=== PATIENT | female | born 2000 | race Two or more races ===

== ENCOUNTER 2024-12-10 11:17 | Outpatient (AMB) | payer OTHER, SELFPAY ==
--- NOTE | 2024-12-10 11:24 | AM.OFFWIN_ITS ---
Intake Vital Signs 12/10/24 11:29 Height 5 ft 4 in Weight 186 lb 7 oz BMI 32.0 BP 124/80 Blood Pressure Location Rt brachial Position Sitting Pulse 103 H Pulse Source Pulse Oximeter Pulse Oximetry (%) 98 Oxygen Delivery Method Room Air Intake Visit Reasons: EP-hemorrhoid problem Intake Note: Patient here for hemmorhoids that have been present on and off for a while now but since she has reached the end of her it has flared up again. Patient Tobacco Use Status: Never used Tobacco Allergies No Known Allergies Allergy (Verified 12/10/24 11:31) Do you need a note to return to daycare/school/sports/work: No HPI HPI Comments History of Present Illness Details History of Present Illness - The patient is a 24-year-old female pr esenting with hemorrhoids. - The hemorrhoids became noticeable and troubling during her current , now at 33 weeks. - Despite constipation starting after co mmencing an iron supplement, the patient experienced hemorrhoids before the supplementation. - She has tried treatments such as witch luis alberto and cortisone cream but reports continued discomfort and the presence of multiple hemorrhoids externally. - Efforts to manually reduce the hemorrh oids were not successful. - Sitz baths have been used to help arie ge symptoms. - If symptoms persist post-delivery, the patient will discuss referral to a surgeon with her primary care physician. Physical Exam General: Cooperative, healthy appearing, comfortable, no acute distress and well developed Orientation: Patient oriented x3 Limitations: No limitations Head: Normal to inspection Ears: Hearing grossly normal bilaterally Nose: Normal External nose present Face and sinus: Normal facial exam Eyes: Appearance normal, both eyes and all related structures Neck: Normal visual inspection and Yes full ROM Respiratory: Normal respiratory effort and able to speak in complete sentences. Skin: No rashes or lesions noted Neuro: Patient oriented x3 Extremities: Normal to inspection PFSH Social History Patient Tobacco Use Status: Never used Tobacco Review of Systems Const All systems reviewed & are unremarkable except as noted in HPI and below Physical Exam Vital Signs: Last Vital Signs Pulse 103 H 12/10/24 11:29 BP 124/80 12/10/24 11:29 Pulse Ox 98 12/10/24 11:29 Oxygen Delivery Method Room Air 12/10/24 11:29 BMI result Body Mass Index 32.0 Assessment & Plan Assessment & Plan (1) Hemorrhoids during : Code(s): O22.40 - Hemorrhoids in , unspecified trimester Qualifiers: Trimester: third trimester Qualified Code(s): O22.43 - Hemorrhoids in , third trimester Plan: The management plan for the patient's external hemorrhoids includes conservative treatment measures such as the application of cold Tucks pads and sitz baths. Phenylephrine ointment is recommended to help relieve swelling, with the advice to verify the safety of these treatments during . Consideration for surgical intervention was discussed if the hemorrhoidal symptoms remain problematic after delivery, with the possibility of seeking a referral for surgery during the scheduled February appointment with PCP if significant improvement is not achieved. Patient was informed and verbally consented to the use of an ambient scribe for clinic note documentation during this visit. Coding Level of Care Code Est Pt Level 3 (33975) Diagnoses Hemorrhoids during in third trimester O22.43 Trimester: third trimester
[2024-12-10 11:29] VITALS: BP 124/80; PULSE 103; O2SAT 98; BMI 32.0
--- OUTSIDE RECORDS SUMMARY | 2024-12-10 13:29 | XMS_ITS | Data Portability ---
Author Organization [facility] [address] Address [address] [place] [address] Assessment No assessment recorded. Plan of Treatment Reminders Order Date Submit Date Provider Last Modified By Organization Details Last Modified Time Details Appointments None record ed. Lab None record ed. Referral None record ed. Procedures None record ed. Surgeries None record ed. Imaging None record ed. Medication Orders None record ed. Patient TargetsNo targets recorded. Patient InstructionsNo instructions recorded. Reason for Referral None Reported. Medical Equipment None Reported. Medications Name Sig Start Date Stop Date Status Note LastModified by Organization Details LastModified Time doxycycline hyclate 100 mg capsule active Not Available Not Available N ot Available cetirizine 10 mg tablet TAKE 1 TABLET BY MOUTH EVERY DAY active Not Available Not Available No t Available fluticasone propionate 50 mcg/actuation nasal spray,suspens ion SHAKE LIQUID AND USE 2 SPRAYS IN EACH NOSTRIL DAILY FOR 5 DAYS active Not Available Not Available No t Available doxycycline hyclate 100 mg tablet TAKE 1 TABLET BY MOUTH TWICE DAILY FOR 7 DAYS active Not Available Not Available No t Available Vitals None Recorded Social History None recorded. Functional Status None recorded. Mental Status None recorded. Family History Nothing Reported. Medical History No medical history recorded. Gynecological HistoryNo gynecological history recorded. Obstetrics History GPAL:G 0 P 0 0 0 0 Past Encounters Encounter ID Performer Location Encounter Start Date Encounter Closed Date Diagnosis/Indication Diagnosis SNOMED-CT Code Diagnosis ICD10 Code Diagnosis Note [id number] [address] [address] [place] [address] 08/03/2020 17:05:46 08/03/2020 19:22:12 [id number] [address] [address] [place] [address] 10/30/2020:38:22 10/30/2020 13:14:57 [id number] [address] [place] [address] 06/18/2021 18:22:04 06/18/2021 20:21:37 [id number] [address] [facility] [place] [address] 08/08/2020 09:37:08 08/09/2020 07:51:15 [id number] [address] [facility] [place] [address] 03/19/2020 13:12:16 03/19/2020 14:58:35 [id number] [address] [facility] [place] [address] 01/21/2021 13:31:21 01/21/2021 13:54:59 [id number] [address] [place] [address] 09/07/2021 16:59:32 09/07/2021 17:45:11 [id number] Aant Rod, [employer] [address] [address] 05/28/2024 16:17:49 05/28/2024 17:08:40 Administrative reason for encounter [id number] Z02.9 not sure why this chart was created . no data found Health Concerns Section Related Observation LastModified by Organization Detai ls LastModified Time None Recorded Concern Status LastModified by Organization Details LastModified Time None Recorded Advance Directives Directive None Recorded Payers Encounter Date Sequence Insurance Name Policy Number Policy Sahu Covered Member ID Sahu Member ID Guarantor Name 10/30/2020 1 [employer] - DOS PRIOR TO 2024 - [employer] () Ashley Acevedo [id number] Ashley Acevedo 06/18/2021 1 [employer] - DOS PRIOR TO 2024 - [employer] () Ashley Acevedo [id number] Ashley Acevedo 09/07/2021 1 [employer] - DOS PRIOR TO 2024 - [employer] () Ashley Acevedo [id number] Ashley Acevedo 05/28/2024 1 [employer] - DOS PRIOR TO 2024 - [employer] () Ashley Acevedo [id number] Ashley Acevedo OBGyn Episode No OBEpisode recorded.
--- OUTSIDE RECORDS SUMMARY | 2024-12-10 13:30 | XMS_ITS | Clinical Summary ---
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 Role Phone Unavailable Primary Care Provider Unavailabl e Social History Tobacco Use Types Packs/Day Years Used Date Smoking Tobacco: Never Assessed Comments Unknown Sex and Gender Information Value Date Recorded Sex Assigned at Not on file Legal Sex Female 5:43 PM EST Gender Identity Not on file Sexual Orientation Not on file Plan of Treatment Health Maintenance Due Date Last Done Comments HPV Vaccines (1 - 3-dose series) 2013 DTaP,Tdap,and Td Vaccines (1 - Tdap) 2017 Hepatitis B Vaccines (1 of 3 - 19+ 3-dose series) 2017 Cervical Cancer Screening: P ap Smear 2019 COVID-19 Vaccine ( - 2023-2 5 season) 2024 Influenza Vaccine (#1) 2024 HIB Vaccines Aged Out No longer eligi ble based on patient's age to complete this topic Hepatitis A Vaccines Aged Out No long er eligible based on patient's age to complete this topic IPV Vaccines Aged Out No longer eligi ble based on patient's age to complete this topic MMR Vaccines Aged Out No longer eligi ble based on patient's age to complete this topic Meningococcal ACWY Vaccine Aged Out N o longer eligible based on patient's age to complete this topic Meningococcal B Vacine Aged Out No lo nger eligible based on patient's age to complete this topic Pneumococcal Vaccine: Pediat rics (0 to 5 Years) and At-Risk Patients (6 to 64 Years) Aged Out No longer eligible b ased on patient's age to complete this topic RSV Immunization Patients Un anthony 20 months Aged Out No longer eligible b ased on patient's age to complete this topic Varicella Vaccines Aged Out No longer eligible based on patient's age to complete this topic
--- OUTSIDE RECORDS SUMMARY | 2024-12-10 13:30 | XMS_ITS | Data Portability ---
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 Plan of Treatment Reminders Order Date Submit Date Provider Last Modified By Organization Details Last Modified Time Details Appointments None recor ded. Lab CBC w/ auto diff 2017 018 [facility], [address], [address], [place], [address], 8 21:43:14 TSH, serum or plasm a 2017 018 [facility], [address], [address], [place], [address], 8 23:48:17 CMP, serum or plasm a 2017 018 [facility], [address], [address], [place], [address], 8 23:31:38 H pylor i igm+i gg+ig a Ab, serum 2017 018 [facility], [address], [address], [place], [address], 8 22:52:50 tissu e trans gluta wai e iga Ab, serum 2017 018 [facility], [address], [address], [place], [address], 8 12:45:12 tissu e trans gluta wai e igg Ab, serum 2017 018 [facility], [address], [address], [place], [place], [address], 8 16:26:16 CT + NG DNA, PCR, urine 2017 018 [email or web address], [address], [address], [place], [address], 8 10:29:03 TSH, serum or plasm a 2017 018 [facility], [address], [place], [place], [address], 8 21:22:26 RPR (rapi d plasm a reagi n), titer , serum 2017 018 [facility], [address], [address], [place], [address], 8 09:43:43 HIV 1+2 AB + HIV 1 p24 Ag, quali tativ e immun oassa y, serum 2017 018 [facility], [address], [place], [address], 8 08:58:12 Referral gastr leah winslow ist refer ral 2017 018 [facility], [address] [facility], [place], [address], 9 11:36:36 physi kelsey badillot refer ral - Low back pain with radia tion. Inter mitte nt. 2017 018 [email or web address] Not available 8 08:07:22 Procedures None recor ded. Surgeries None recor ded. Imaging None recor ded. Medication Orders Analp sylvester-H C 2.5 %-1 % recta l cream 2017 018 [email or web address] Not available 8 14:11:39 ibupr ofen 600 mg table t 2017 018 INTERFACE Not available 8 14:06:49 napro xen 500 mg table t 2016 017 [email or web address] Not available 8 13:43:04 cyclo benza neto 5 mg table t 2016 017 [email or web address] Not available 8 13:42:43 Patient TargetsNo targets recorded. Patient Instructions Encounter Date Encounter Id Patient Instructions Last Modified By Organization Details Last Modified Time 07/30/2017 [id number] low back pain: exercises Not available 07/30/2017 14:19:21 back strain: care instructions Not available 07/30/2017 14:19:21 I have reviewed the note and agree with the assessment and plan of care. [email or web address] Not available 07/30/2017 15:08:31 12/18/2017 [id number] back care and preventing injuries: care instructions [email or web address] Not available 12/18/2017 13:19:33 getting back to normal after low back pain: care instructions [email or web address] Not available 12/18/2017 13:19:33 learning about relief for back pain [email or web address] Not available 12/18/2017 13:19:33 01/20/2018 [id number] back care and preventing injuries: care instructions [email or web address] Not available 01/20/2018 14:06:43 getting back to normal after low back pain: care instructions [email or web address] Not available 01/20/2018 14:06:43 learning about relief for back pain [email or web address] Not available 01/20/2018 14:06:43 Essential Tremor: Care Instructions [email or web address] Not available 01/20/2018 14:06:43 05/23/2018 [id number] call/ return for any concerns. [email or web address] Not available 05/23/2018 14:52:09 I have reviewed the note and agree with the assessment and plan of care. lgladingdilorenz Not available 05/23/2018 15:23:37 09/04/2018 [id number] call or return for worsening or concerns. [email or web address] Not available 09/04/2018 13:49:48 Reason for Referral Low back pain with radiation . Intermittent. Referring Physician: Daina Price, [facility], Encounter Date: 01/20/2018 Claim Approver Referral for Abnormal weight loss Referring Physician: Doris Layton, [facility], Encounter Date: 09/04/2018 Results Created Date Observation Date Name Description Value Unit Range Abnormal Flag Note LastModifiedBy Organization Detail LastModifiedTime 01/21/2001/20/2018 TSH, serum or plasm a TSH 0.69 mIU/m L (0.40- 4.00) Not Available [facility] (Centralized Electronic Ordering - All Locations) Patient Can Go To The Location Of Their Choice, [id number] 01/20/2018 21:22:26 01/21/2001/21/2018 HIV 1+2 AB + HIV 1 p24 Ag, quali tativ e immun oassa y, serum result 4TH gen HIV Ab-Ag NEGAT BRANDIE NEGAT BRANDIE FOR ANTIB ODIES TO HIV 1 AND HIV 2 AND P24 ANTIG EN. Refer ence range : Negat brandie ADDIT IONAL NOTE: WRITT EN PATIE NT AUTHO RIZAT ION IS REQUI RED FOR EACH SEPAR ATE RELEA SE OF THIS TEST RESUL T. Not Available [facility] (Centralized Electronic Ordering - All Locations) Patient Can Go To The Location Of Their Choice, [id number] 01/21/2018 08:58:12 01/21/2001/21/2018 RPR (rapi d plasm a reagi n), titer , serum syphilis screen by jakob NEGAT BRANDIE Refer ence range : Negat brandie Resul t repor karissa to [place] DPH. This test was perfo rmed on the Abbot t Archi tect immun oassa y syste m. Not Available [facility] (Centralized Electronic Ordering - All Locations) Patient Can Go To The Location Of Their Choice, [id number] 01/21/2018 09:43:43 01/21/2001/21/2018 RPR (rapi d plasm a reagi n), titer , serum RPR titer result NOT INDICA KARISSA Not Available [facility] (Centralized Electronic Ordering - All Locations) Patient Can Go To The Location Of Their Choice, [id number] 01/21/2018 09:43:43 01/21/20 18 01/21/2018 RPR (rapi d plasm a reagi n), titer , serum tppa result NOT INDICA KARISSA Not Available [facility] (Centralized Electronic Ordering - All Locations) Patient Can Go To The Location Of Their Choice, [id number] 01/21/2018 09:43:43 01/21/2001/21/2018 RPR (rapi d plasm a reagi n), titer , serum syphilis interpretati on Indic ative of the absen ce of infec tion with Trepo nemal palli dum. Test may be negat brandie in cases of incub ating or early prima ry syphi lis. Consi anthony repea t testi ng in sever al weeks if clini kelsey suspi cion is high. Not Available [facility] (Centralized Electronic Ordering - All Locations) Patient Can Go To The Location Of Their Choice, [id number] 01/21/2018 09:43:43 09/04/2009/04/2018 CBC w/ auto diff WBC 8.4 K/mm3 (4.0-1 1.0) Not Available [facility] (Centralized Electronic Ordering - All Locations) Patient Can Go To The Location Of Their Choice, [id number] 09/04/2018 21:43:14 09/04/2009/04/2018 CBC w/ auto diff RBC 4.62 M/mm3 (4.20- 5.40) Not Available [facility] (Centralized Electronic Ordering - All Locations) Patient Can Go To The Location Of Their Choice, [id number] 09/04/2018 21:43:14 09/04/2009/04/2018 CBC w/ auto diff HGB 13.1 gm/dL (11.7- 15.5) Not Available [facility] (Centralized Electronic Ordering - All Locations) Patient Can Go To The Location Of Their Choice, [id number] 09/04/2018 21:43:14 09/04/20 18 09/04/2018 CBC w/ auto diff HCT 39.4 % (35.7- 45.8) Not Available [facility] (Centralized Electronic Ordering - All Locations) Patient Can Go To The Location Of Their Choice, 09/04/2018 21:43:14 09/04/20 18 09/04/2018 CBC w/ auto diff MCV 85.3 fL (80.0- 100.0) Not Available [facility] (Centralized Electronic Ordering - All Locations) Patient Can Go To The Location Of Their Choice, 09/04/2018 21:43:14 09/04/2009/04/2018 CBC w/ auto diff MCH 28.4 pg (27.0- 34.0) Not Available [facility] (Centralized Electronic Ordering - All Locations) Patient Can Go To The Location Of Their Choice, 09/04/2018 21:43:14 09/04/20 18 09/04/2018 CBC w/ auto diff MCHC 33.2 g/dL (33.0- 37.0) Not Available [facility] (Centralized Electronic Ordering - All Locations) Patient Can Go To The Location Of Their Choice, 09/04/2018 21:43:14 09/04/2009/04/2018 CBC w/ auto diff plt 255 K/mm3 (150-4 60) Not Available [facility] (Centralized Electronic Ordering - All Locations) Patient Can Go To The Location Of Their Choice, 09/04/2018 21:43:14 09/04/2009/04/2018 CBC w/ auto diff RDW-SD 42.4 fL (<47.0 ) Not Available [facility] (Centralized Electronic Ordering - All Locations) Patient Can Go To The Location Of Their Choice, 09/04/2018 21:43:14 09/04/2009/04/2018 CBC w/ auto diff MPV 10.6 fL (9.4-1 2.4) Not Available [facility] (Centralized Electronic Ordering - All Locations) Patient Can Go To The Location Of Their Choice, 09/04/2018 21:43:14 09/04/2009/04/2018 CBC w/ auto diff automated NRBC 0.0 #/100 _WBC' s Not Available [facility] (Centralized Electronic Ordering - All Locations) Patient Can Go To The Location Of Their Choice, 09/04/2018 21:43:14 09/04/2009/04/2018 CBC w/ auto diff abs. NRBC 0.0 K/mm3 Not Available [facility] (Centralized Electronic Ordering - All Locations) Patient Can Go To The Location Of Their Choice, 09/04/2018 21:43:14 09/04/2009/04/2018 CBC w/ auto diff neut # 5.8 K/mm3 (1.3-7 .0) Not Available [facility] (Centralized Electronic Ordering - All Locations) Patient Can Go To The Location Of Their Choice, 09/04/2018 21:43:14 09/04/2009/04/2018 CBC w/ auto diff lymph # 1.9 K/mm3 (0.8-3 .1) Not Available [facility] (Centralized Electronic Ordering - All Locations) Patient Can Go To The Location Of Their Choice, 09/04/2018 21:43:14 09/04/2009/04/2018 CBC w/ auto diff mono# 0.5 K/mm3 (0.4-0 .9) Not Available [facility] (Centralized Electronic Ordering - All Locations) Patient Can Go To The Location Of Their Choice, 09/04/2018 21:43:14 09/04/2009/04/2018 CBC w/ auto diff eo # 0.1 K/mm3 (0.0-0 .4) Not Available [facility] (Centralized Electronic Ordering - All Locations) Patient Can Go To The Location Of Their Choice, 09/04/2018 21:43:14 09/04/2009/04/2018 CBC w/ auto diff baso # 0.0 K/mm3 (0.0-0 .1) Not Available [facility] (Centralized Electronic Ordering - All Locations) Patient Can Go To The Location Of Their Choice, 09/04/2018 21:43:14 09/04/2009/04/2018 CBC w/ auto diff abs. imm gran 0.0 K/mm3 Not Available [facility] (Centralized Electronic Ordering - All Locations) Patient Can Go To The Location Of Their Choice, 09/04/2018 21:43:14 09/04/2009/04/2018 CBC w/ auto diff neut 69.7 % (44-76 ) Not Available [facility] (Centralized Electronic Ordering - All Locations) Patient Can Go To The Location Of Their Choice, 09/04/2018 21:43:14 09/04/20 18 09/04/2018 CBC w/ auto diff lymph 22.9 % (15-43 ) Not Available [facility] (Centralized Electronic Ordering - All Locations) Patient Can Go To The Location Of Their Choice, [id number] 09/04/2018 21:43:14 09/04/20 18 09/04/2018 CBC w/ auto diff monocyte 5.4 % (4.5-1 0.5) Not Available [facility] (Centralized Electronic Ordering - All Locations) Patient Can Go To The Location Of Their Choice, [id number] 09/04/2018 21:43:14 09/04/20 18 09/04/2018 CBC w/ auto diff eo 1.1 % (0-6) Not Available [facility] (Centralized Electronic Ordering - All Locations) Patient Can Go To The Location Of Their Choice, [id number] 09/04/2018 21:43:14 09/04/20 18 09/04/2018 CBC w/ auto diff baso 0.4 % (0-2) Not Available [facility] (Centralized Electronic Ordering - All Locations) Patient Can Go To The Location Of Their Choice, [facility] 09/04/2018 21:43:14 09/04/20 18 09/04/2018 CBC w/ auto diff imm gran 0.5 % (0.0-0 .6) Not Available [facility] (Centralized Electronic Ordering - All Locations) Patient Can Go To The Location Of Their Choice, [id number] 09/04/2018 21:43:14 09/04/20 18 09/04/2018 H pylor i igm+i gg+ig a Ab, serum H. pylori IgG (neg) normal NEGAT BRANDIE NOTE: THIS TEST SHOUL D ONLY BE PERFO RMED ON PATIE NTS WITH SYMPT OMS SUGGE STIVE OF GASTR OINTE SWETA L DISEA SE. PERFO RMANC E SAVANAH CTERI STICS CORRE LATE WITH PRETE ST PROBA BILIT Y, AND PREVA LENCE INCRE ASES WITH AGE. THIS TEST HAS NOT BEEN SPECI FICAL LY EVALU ATED IN PEDIA TRIC POPUL ATION S, A LOWER PREVA LENCE GROUP . PLEAS E INTER PRET RESUL TS TOGET HER WITH CLINI KELSEY AND OTHER DIAGN OSTIC FINDI NGS, AND NOTE THAT A POSIT BRANDIE RESUL T DOES NOT DISTI NGUIS H ACTIV E INFEC TION FROM COLON IZATI ON BY BETY TOMAS. Not Available [facility] (Centralized Electronic Ordering - All Locations) Patient Can Go To The Location Of Their Choice, 09/04/2018 22:52:50 09/04/2009/04/2018 CMP, serum or plasm a glucose 92 mg/dL (70-99 ) Not Available [facility] (Centralized Electronic Ordering - All Locations) Patient Can Go To The Location Of Their Choice, 09/04/2018 23:31:38 09/04/2009/04/2018 CMP, serum or plasm a BUN 13 mg/dL (6-20) Not Available [facility] (Centralized Electronic Ordering - All Locations) Patient Can Go To The Location Of Their Choice, 09/04/2018 23:31:38 09/04/2009/04/2018 CMP, serum or plasm a creatinine 0.6 mg/dL (0.5-1 .0) Not Available [facility] (Centralized Electronic Ordering - All Locations) Patient Can Go To The Location Of Their Choice, 09/04/2018 23:31:38 09/04/2009/04/2018 CMP, serum or plasm a sodium 141 mmol/ L (133-1 45) Not Available [facility] (Centralized Electronic Ordering - All Locations) Patient Can Go To The Location Of Their Choice, 09/04/2018 23:31:38 09/04/2009/04/2018 CMP, serum or plasm a potassium 4.0 mmol/ L (3.6-5 .2) Not Available [facility] (Centralized Electronic Ordering - All Locations) Patient Can Go To The Location Of Their Choice, 09/04/2018 23:31:38 09/04/2009/04/2018 CMP, serum or plasm a chloride 104 mmol/ L (98-10 7) Not Available [facility] (Centralized Electronic Ordering - All Locations) Patient Can Go To The Location Of Their Choice, 09/04/2018 23:31:38 09/04/2009/04/2018 CMP, serum or plasm a bicarbonate 25 mmol/ L (22-29 ) Not Available [facility] (Centralized Electronic Ordering - All Locations) Patient Can Go To The Location Of Their Choice, 09/04/2018 23:31:38 09/04/2009/04/2018 CMP, serum or plasm a anion gap 12 (4-17) Not Available [facility] (Centralized Electronic Ordering - All Locations) Patient Can Go To The Location Of Their Choice, 09/04/2018 23:31:38 09/04/2009/04/2018 CMP, serum or plasm a albumin 4.8 gm/dL (3.4-4 .8) Not Available [facility] (Centralized Electronic Ordering - All Locations) Patient Can Go To The Location Of Their Choice, 09/04/2018 23:31:38 09/04/2009/04/2018 CMP, serum or plasm a calcium 9.8 mg/dL (8.6-1 0.5) Not Available [facility] (Centralized Electronic Ordering - All Locations) Patient Can Go To The Location Of Their Choice, 09/04/2018 23:31:38 09/04/2009/04/2018 CMP, serum or plasm a bilirubin,to yoli 1.0 mg/dL (0-1.2 ) Not Available [facility] (Centralized Electronic Ordering - All Locations) Patient Can Go To The Location Of Their Choice, 09/04/2018 23:31:38 09/04/2009/04/2018 CMP, serum or plasm a total protein 7.4 gm/dL (6.2-8 .2) Not Available [facility] (Centralized Electronic Ordering - All Locations) Patient Can Go To The Location Of Their Choice, 09/04/2018 23:31:38 09/04/2009/04/2018 CMP, serum or plasm a Ag ratio 1.8 Not Available [facility] (Centralized Electronic Ordering - All Locations) Patient Can Go To The Location Of Their Choice, 09/04/2018 23:31:38 09/04/2009/04/2018 CMP, serum or plasm a AST 15 U/L (0-32) Not Available [facility] (Centralized Electronic Ordering - All Locations) Patient Can Go To The Location Of Their Choice, 09/04/2018 23:31:38 09/04/20 18 09/04/2018 CMP, serum or plasm a alk phos 69 U/L (35-10 4) Not Available [facility] (Centralized Electronic Ordering - All Locations) Patient Can Go To The Location Of Their Choice, 09/04/2018 23:31:38 09/04/20 18 09/04/2018 CMP, serum or plasm a ALT 14 U/L (0-33) Not Available [facility] (Centralized Electronic Ordering - All Locations) Patient Can Go To The Location Of Their Choice, 09/04/2018 23:31:38 09/04/20 18 09/04/2018 CMP, serum or plasm a est GFR non 131 mL/mi n/1.7 3_M2 Creat inine based estim ated glome rular filtr ation rate (eGFR ) is calcu lated using the Chron ic Kidne y Disea se Epide miolo gy Colla borat ion (CKD- EPI). The CKD-E PI creat inine equat ion has not been valid ated in child alexis (<18 years ), pregn ant women or in some racia l or ethni c subgr oups other than Cauca sians and Afric an Ameri cans. Not Available [facility] (Centralized Electronic Ordering - All Locations) Patient Can Go To The Location Of Their Choice, 09/04/2018 23:31:38 09/04/2009/04/2018 CMP, serum or plasm a est GFR 152 mL/mi n/1.7 3_M2 Creat inine based estim ated glome rular filtr ation rate (eGFR ) is calcu lated using the Chron ic Kidne y Disea se Epide miolo gy Colla borat ion (CKD- EPI). The CKD-E PI creat inine equat ion has not been valid ated in child alexis (<18 years ), pregn ant women or in some racia l or ethni c subgr oups other than Cauca sians and Afric an Ameri cans. Not Available [facility] (Centralized Electronic Ordering - All Locations) Patient Can Go To The Location Of Their Choice, 09/04/2018 23:31:38 09/04/2009/04/2018 TSH, serum or plasm a TSH 1.48 mIU/m L (0.40- 4.00) Not Available [facility] (Centralized Electronic Ordering - All Locations) Patient Can Go To The Location Of Their Choice, 09/04/2018 23:48:17 09/04/20 18 09/08/2018 tissu e trans gluta wai e igg Ab, serum tissue tranglutamin ase IgG <1.2 Refer ence range : <6.0 (Nega tive) Unit: U/mL Test Perfo rmed by: [facility], [address], [place] [address] Labor atory Direc tor: Mike madsen III, M.D. Not Available [facility] (Centralized Electronic Ordering - All Locations) Patient Can Go To The Location Of Their Choice, [id number] 09/08/2018 16:26:16 09/04/20 18 09/15/2018 tissu e trans gluta wai e iga Ab, serum ttg result 0.29 U/mL (<15.0 1) Refer ence Range : less than or equal to 15 U/mL (nega tive) Effec tive Janua ry 2016 the refer ence range for this assay has gtz ed from less than 4 U/mL to less than or equal to 15 U/mL. Not Available [facility] (Centralized Electronic Ordering - All Locations) Patient Can Go To The Location Of Their Choice, [id number] 09/15/2018 12:45:12 06/19/20 18 06/19/2018 XR, ankle No observ ation record ed. [email or web address] [facility] [address] [place] [address], [place], [address], 06/20/2018 09:14:15 Result Notes None recorded. Problems Name Problem SNOMED Code Status Onset Date Resolution Date Notes Provider Name and Address Organization Details Recorded Time No current problems or disabili ty 168746127 Active VICKIE Belcher MA [facility] 7 09:03:46 Abdomina l pain 56896067 Completed 201104/06/2014 IMPRESSI ON: NON-ACUT E ABDOMEN, IN-HOUSE UA CLEAR, SUSPECT VIRAL ETIOLOGY , FOR NOW WITH MONITOR AND WILL RTC/ER IF WORSENIN G ABDOMINA L PAIN, FEVER OR VOMITING .; RECORDED 06/18/20 12 10:51AM BY QUENTIN MOREIRA MA, ANNOTATI ON/ADDEN BHAVIN Layton [facility] [address] [facility] [address], [place], [address], [facility] 6 15:24:48 Radiolog y result abnormal [id number] Completed 201104/06/2014 RECORDED 06/18/20 12 10:50AM BY QUENTIN MOREIRA MA, ANNOTATI ON/ADDEN BHAVIN Layton, [facility] [address] [facility] [address], [place], [address], [facility] 6 15:24:48 Acute lymphade nitis [id number] Completed 201104/06/2014 RECORDED 06/18/20 12 10:50AM BY QUENTIN MOREIRA MA, ANNOTATI ON/ADDEN BHAVIN Layton, [facility] [address] [address], [place], [address], [facility] 6 15:24:48 Acute pharyngi tis 214539134 Completed 201104/06/2014 IMPRESSI ON: IN HOUSE STREP, SEND OUT PENDING. SUSPECT VIRAL ETIOLOGY . ENCOURAG ED REST, HYDRATIO N, TYLENOL/ MOTRIN PRN.; RECORDED 06/18/20 12 10:50AM BY QUENTIN MOREIRA MA, ANNOTATI ON/ADDEN DUM Doris Layton, [facility] [address] [address], [place], [address], [facility] 6 15:24:48 Acute upper respirat ory infectio n [id number] Completed 201208/31/2014 IMPRESSI ON: MOM WANTS SOMETHIN G FOR COUGH. VIRAL. 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 RICE, CONSIDER BRACE WHILE PLAYING, NSAID PRN.; RECORDED 07/15/20 12 9:11AM BY QUENTIN MOREIRA MA, CHRIS ON/ADDEN BHAVIN Layton, [facility] [address] [facility] [address], [place], [address], [facility] 6 15:24:48 Patient status finding [id number] Completed 201204/06/2014 RECORDED 07/14/20 13 9:12AM BY ZACHERY CERDA MA, CHRIS ON/ADDEN DUM Doris Layton, [facility] [address] [facility] [address], [place], [address], [facility] 6 15:24:48 Jihan nunes [id number] Completed 201204/06/2014 IMPRESSI ON: THEY WILL CALL HER EYE DR; RECORDED 09/08/20 13 9:39AM BY QUENTIN MOREIRA MA, CHRIS ON/ADDEN BHAVIN Layton, [facility] [address] [facility] [address], [place], [address], [facility] 6 15:24:48 Constipa tion [id number] Completed 201104/06/2014 RECORDED 06/18/20 12 10:50AM BY QUENTIN MOREIRA MA, CHRIS ON/ADDEN DUM Doris Layton, [facility] [address] [facility] [address], [place], [address], [facility] 6 15:24:48 Cough [id number] Completed 200804/06/2014 RECORDED 08/11/20 09 1:33PM BY SYEDA SALAZAR MA, CHRIS ON/ADDEN BHAVIN Layton, [facility] [address] [address], [place], [address], [facility] 6 15:24:48 Dysuria [id number] Completed 200804/06/2014 RECORDED 12/29/19 09 8:28AM BY SYEDA SALAZAR MA, CHRIS ON/ADDEN BHAVIN Layton, [facility] [address] [facility] [address], [place], [address], [facility] 6 15:24:48 Pain in elbow 75978666 Completed 201104/06/2014 IMPRESSI ON: SUSPECT THIS IS SECONDAR Y TO RECENT INJURY. NL EXAM, MOM AND PT REASSURE D. CONTACT ME FOR WORSENIN G.; RECORDED 06/18/20 12 10:50AM BY QUENTIN MOREIRA MA, CHRIS ON/TONI Layton, [facility] [address] [facility] [address], [place], [address], [facility] 6 15:24:48 Disorder of skin and/or subcutan eous tissue 76461320 Completed 201204/06/2014 IMPRESSI ON: SKIN TAG, PT'S MOM TO MAKE APPT WITH DERM FOR REMOVAL D/T COSMETIC REASON; RECORDED 09/08/20 13 9:39AM BY QUENTIN MOREIRA MA, CHRIS ON/TONI Layton, [facility] [address] [facility] [address], [place], [address], [facility] 6 15:24:48 Influenz a vaccine needed [id number] 06 Completed 201004/06/2014 DATE: 06/14/20 11; RECORDED 07/15/20 12 9:11AM BY QUENTIN MOREIRA MA, CHRIS COLLADO/TONI Layton, [facility] [address] [facility] [address], [place], [address], [facility] 6 15:24:48 Injury of head [id number] Completed 201204/06/2014 IMPRESSI ON: WITHOUT LOC, ASSYMPTO MATIC X 4 DAYS, 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 [address], [place], [address], [facility] 6 15:24:48 Knee pain Completed 201204/06/2014 IMPRESSI ON: ONGOING ISSUE FOR PT SINCE MY EVAL 04/02 WHICH INCLUDED NORMAL KNEE XRAYS, CBC, RF, SED RATE. AT THIS POINT BEST EVAL BY ORTHO. WE WILL ARRANGE FOR VISIT WITH SHRINERS .; RECORDED 07/14/20 13 9:12AM BY ZACHERY CERDA MA, CHRIS ON/ADDEN DUM Doris Layton, [facility] [address] [facility] [address], [place], [address], [facility] 6 15:24:48 Nonvenom ous insect bite of multiple sites [id number] Completed 201104/06/2014 RECORDED 06/18/20 12 10:50AM BY QUENTIN MOREIRA MA, CHRIS ON/ADDEN DUM Doris Layton, [facility] [address] [facility] [address], [place], [address], [facility] 6 15:24:48 Active or passive immuniza tion Completed 200904/06/2014 RECORDED 06/08/20 10 4:37PM BY ANTON KIM PA-C, OFFICE VISIT Doris Layton, [facility] [address] [address], [place], [address], [facility] 6 15:24:48 Varicell a vaccinat ion Completed 201004/06/2014 RECORDED 06/14/20 11 3:46PM BY ANTON KIM PA-C, OFFICE VISIT Doris Layton [facility] [address] [address], [facility] [place], [address], [facility] 6 15:24:48 Patient status finding [id number] Completed 201208/31/2014 RECORDED 09/08/20 13 9:40AM BY QUENTIN MOREIRA MA, OFFICE VISIT Doris Layton [facility] [address] [address], [facility] [place], [address], [facility] 6 15:24:48 Immuniza tion refused Completed 201208/31/2014 RECORDED 09/08/20 13 9:45AM BY QUENTIN MOREIRA MA, OFFICE VISIT Doris Layton [facility] [address] [address], [facility] [place], [address], [facility] 6 15:24:48 Pediculo sis capitis [id number] Completed 200804/06/2014 IMPRESSI ON: SPOKE TO MOM, SEES EGGS, KNOWS HOW TO TREAT AND USE COMB; RECORDED 12/29/19 09 9:07AM BY ANTON KIM PA-C, ANNOTATI ON/ADDEN DUM Doris Layton [facility] [address] [address], [place], [address], [facility] 6 15:24:48 Eruption [id number] Completed 200804/06/2014 RECORDED 12/29/19 09 8:28AM BY SYEDA SAALZAR MA, ANNOTATI ON/ADDEN DUM Doris Layton [facility] [address] [facility] [address], [place], [address], [facility] 6 15:24:48 Anorecta l disorder [id number] Completed 201104/06/2014 IMPRESSI ON: ONGOING ISSUE, WITH HEMORRHO IDS ON EXAM AND NO FISSURE APPRECIA KARISSA, ALTHOUGH IT IS POSSIBLE THERE IS A SMALL UNVISUAL IZED ANAL FISSURE CAUSING HER DISCOMFO RT. [facility] ED CONTINUE D USE OF FIBER TO PREVENT CONSTIPA TION/STR AINING. MAY ALSO TRY SMALL AMT OF PROCTOFO AM RECTALLY FOR SX RELIEF. [facility] ED 2 WEEK TRIAL AND F/U WITH PCP IF SXS PERSIST. ; RECORDED 06/18/20 12 10:50AM BY QUENTIN MOREIRA MA, MAHINATI ON/ADDEN DUM Doris Layton, [address] [address], [place], [address], [facility] 6 15:24:48 Well child [id number] Completed 201208/31/2014 IMPRESSI ON: HEALTHY VISIT, RETURN 1 YR OR SOONER PRN.; RECORDED 09/08/20 13 9:40AM BY QUENTIN MOREIRA MA, OFFICE VISIT Doris Layton, [facility] [address] [address], [place], [address], [facility] 6 15:24:48 Well child [id number] Completed 201104/06/2014 RECORDED 06/18/20 12 10:50AM BY QUENTIN MOREIRA MA, MAHINATI ON/ADDEN DUM Doris Layton, [facility] [address] [facility] [address], [place], [address], [facility] 6 15:24:48 Kyphosco liosis and scoliosi s Completed 201204/06/2014 RESOLVED DATE: 09/08/20 13; STORY: X-RAYS REVEALED NO SCOLIOSI S IN 2008; RECORDED 09/08/20 13 3:44PM BY OJ MENDOZA, MAHINATI ON/ADDEN DUM Doris Layton, [facility] [address] [facility] [address], [place], [address], [facility] 6 15:24:48 Sprain of ankle [id number] Completed 201204/06/2014 IMPRESSI ON: IF NOT IMPROVIN G IN 1 WEEK CALL THE OFFICE.; RECORDED 09/08/20 13 9:39AM BY QUENTIN MOREIRA MA, ANNOTATI ON/ADDEN DUM Doris Layton, [facility] [address] [address], [place], [address], [facility] 6 15:24:48 Pain in limb [id number] Completed 201204/06/2014 IMPRESSI ON: SUSPECT GAME KEEPERS THUMB.; RECORDED 09/08/20 13 9:39AM BY QUENTIN MOREIRA MA, CHRIS ON/ADDEN DUM Doris Layton, [facility] [address] [address], [place], [address], [facility] 6 15:24:48 Viral disease [id number] Completed 200804/06/2014 RECORDED 12/29/19 09 8:28AM BY SYEDA SALAZAR MA, MAHINATI ON/ADDEN DUM Doris Layton, [facility] [address] [address], [place], [address], [facility] 6 15:24:47 Abdomina l pain [id number] Completed 201105/03/2014 IMPRESSI ON: NON-ACUT E ABDOMEN, IN-HOUSE UA CLEAR, SUSPECT VIRAL ETIOLOGY , FOR NOW WITH MONITOR AND WILL RTC/ER IF WORSENIN G ABDOMINA L PAIN, FEVER OR VOMITING .; RECORDED 06/18/20 12 10:51AM BY QUENTIN MOREIRA MA, ANNOTCHRISTIANNE ON/ADDEN DUM Doris Layton, [facility] [address] [facility] [address], [place], [address], [facility] 6 15:24:48 Radiolog y result abnormal [id number] Completed 201105/03/2014 RECORDED 06/18/20 12 10:50AM BY QUENTIN MOREIRA MA, CHRIS ON/TONI Layton, [address] [facility] [address], [place], [address], [facility] 6 15:24:48 Acute lymphade nitis 07373715 Completed 201105/03/2014 RECORDED 06/18/20 12 10:50AM BY QUENTIN MOREIRA MA, CHRIS ON/TONI Layton, [address], [place], [address], [facility] 6 15:24:48 Acute pharyngi tis [id number] Completed 201105/03/2014 IMPRESSI ON: IN HOUSE STREP, SEND OUT PENDING. SUSPECT VIRAL ETIOLOGY . ENCOURAG ED REST, HYDRATIO N, TYLENOL/ MOTRIN PRN.; RECORDED 06/18/20 12 10:50AM BY QUENTIN MOREIRA MA, CHRIS ON/TONI Layton, [address] [address], [place], [address], [facility] 6 15:24:48 Joint pain in ankle and foot Completed 201105/03/2014 IMPRESSI ON: MILD INJURY RECENTLY PLAYING SOCCER, NO SWELLING , WB FINE. RICE, CONSIDER BRACE WHILE PLAYING, NSAID PRN.; RECORDED 07/15/20 12 9:11AM BY QUENTIN MOREIRA MA, CHRIS ON/TONI Layton, [address], [place], [address], [facility] 6 15:24:48 Patient status finding [id number] Completed 201205/03/2014 RECORDED 07/14/20 13 9:12AM BY ZACHERY CERDA MA, ANNOTATI ON/ADDEN DUM Doris Layton, [facility] [address], [place], [address], [facility] 6 15:24:48 Jihan nunes [id number] Completed 201205/03/2014 NATOI ON: THEY WILL CALL HER EYE DR; RECORDED 09/08/20 13 9:39AM BY QUENTIN MOREIRA MA, ANNOTATI ON/ADDEN DUM Doris Layton, [facility] [address], [place], [address], [facility] 6 15:24:48 Constipa tion [id number] Completed 201105/03/2014 SAW GI - 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 BUT SHE WON'T TAKE IT; RECORDED 06/18/20 12 10:50AM BY QUENTIN MOREIRA MA, ANNOTCHRISTIANNE ON/ADDEN DUM Doris Layton, [facility] [address], [place], [address], [facility] 6 15:24:48 Cough [id number] Completed 200805/03/2014 RECORDED 08/11/20 09 1:33PM BY SYEDA SALAZAR MA, CHRIS ON/TONI Layton, [facility] [address] [facility] [address], [place], [address], [facility] 6 15:24:48 Dysuria [id number] Completed 200805/03/2014 RECORDED 12/29/19 09 8:28AM BY SYEDA SALAZAR MA, CHRIS ON/ADDROSALIA Layton, [facility] [address], [place], [address], [facility] 6 15:24:48 Pain in elbow [id number] Completed 201105/03/2014 IMPRESSI ON: SUSPECT THIS IS SECONDAR Y TO RECENT INJURY. NL EXAM, MOM AND PT REASSURE D. CONTACT ME FOR WORSENIN G.; RECORDED 06/18/20 12 10:50AM BY QUENTIN MOREIRA MA, CHRIS ON/TONI Layton, [facility] [address] [facility] [address], [place], [address], [facility] 6 15:24:48 Disorder of skin and/or subcutan eous tissue [id number] Completed 201205/03/2014 IMPRESSI ON: SKIN TAG, PT'S MOM TO MAKE APPT WITH DERM FOR REMOVAL D/T COSMETIC REASON; RECORDED 09/08/20 13 9:39AM BY QUENTIN MOREIRA MA, CHRIS ON/TONI Layton, [facility] [address] [facility] [address], [place], [address], [facility] 6 15:24:48 Influenz a vaccine needed [id number] 06 Completed 201005/03/2014 DATE: 06/14/20 11; RECORDED 07/15/20 12 9:11AM BY QUENTIN MOREIRA MA, CHRIS ON/TONI Layton, [facility] [address] [facility] [address], [place], [address], [facility] 6 15:24:48 Injury of head [id number] Completed 201205/03/2014 IMPRESSI ON: WITHOUT LOC, ASSYMPTO MATIC X 4 DAYS, 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 [address], [place], [address], [facility] 6 15:24:48 Knee pain Completed 201205/03/2014 IMPRESSI ON: ONGOING ISSUE FOR PT SINCE MY EVAL 04/02 WHICH INCLUDED NORMAL KNEE XRAYS, CBC, RF, SED RATE. AT THIS POINT BEST EVAL BY ORTHO. WE WILL ARRANGE FOR VISIT WITH FLAKITOINERS .; RECORDED 07/14/20 13 9:12AM BY ZACHERY CERDA MA, ANNOTATI ON/ADDEN DUM Doris Layton, [facility] [address] [facility] [address], [place], [address], [facility] 6 15:24:48 Nonvenom ous insect bite of multiple sites [id number] Completed 201105/03/2014 RECORDED 06/18/20 12 10:50AM BY QUENTIN MOREIRA MA, CHRIS ON/ADDEN DUM Doris Layton, [facility] [address] [facility] [address], [place], [address], [facility] 6 15:24:48 Active or passive immuniza tion Completed 200905/03/2014 RECORDED 06/08/20 10 4:37PM BY ANTON KIM PA-C, OFFICE VISIT Doris Layton, [facility] [address] [facility] [address], [place], [address], [facility] 6 15:24:48 Varicell a vaccinat ion Completed 201005/03/2014 RECORDED 06/14/20 11 3:46PM BY ANTON KIM PA-C, OFFICE VISIT Doris Layton [facility] [address] [facility] [address], [place], [address], [facility] 6 15:24:48 Pediculo sis capitis [id number] Completed 200805/03/2014 IMPRESSI ON: SPOKE TO MOM, SEES EGGS, KNOWS HOW TO TREAT AND USE COMB; RECORDED 12/29/19 09 9:07AM BY ANTON KIM PA-C, MAHINATI ON/ADDEN DUM Drois Layton, [facility] [address] [facility] [address], [facility] [place], [address], [facility] 6 15:24:48 Eruption [id number] Completed 200805/03/2014 RECORDED 12/29/19 09 8:28AM BY SYEDA SALAZAR MA, CHRIS ON/ADDEN DUM Doris Layton, [facility] [address] [facility] [address], [facility] [place], [address], [facility] 6 15:24:48 Anorecta l disorder [id number] Completed 201105/03/2014 IMPRESSI ON: ONGOING ISSUE, WITH HEMORRHO IDS ON EXAM AND NO FISSURE APPRECIA KARISSA, ALTHOUGH IT IS POSSIBLE THERE IS A SMALL UNVISUAL IZED ANAL FISSURE CAUSING HER DISCOMFO RT. [facility] ED CONTINUE D USE OF FIBER TO PREVENT CONSTIPA TION/STR AINING. MAY ALSO TRY SMALL AMT OF PROCTOFO AM RECTALLY FOR SX RELIEF. [facility] ED 2 WEEK TRIAL AND F/U WITH PCP IF SXS PERSIST. ; RECORDED 06/18/20 12 10:50AM BY QUENTIN MOREIRA MA, CHRIS ON/ADDEN DUM Doris Layton, [facility] [address] [facility] [address], [place], [address], [facility] 6 15:24:48 Kyphosco liosis and scoliosi s Completed 201205/03/2014 RESOLVED DATE: 09/08/20 13; STORY: X-RAYS REVEALED NO SCOLIOSI S IN 2008; RECORDED 09/08/20 13 3:44PM BY OJ MENDOZA, ANNOTATI ON/ADDEN DUM Doris Layton, [facility] [address] [facility] [address], [place], [address], [facility] 6 15:24:48 Sprain of ankle [id number] Completed 201205/03/2014 IMPRESSI ON: IF NOT IMPROVIN G IN 1 WEEK CALL THE OFFICE.; RECORDED 09/08/20 13 9:39AM BY QUENTIN MOREIRA MA, ANNOTATI ON/ADDEN DUM Doris Layton, [facility] [address] [facility] [address], [place], [address], [facility] 6 15:24:48 Pain in limb [id number] Completed 201205/03/2014 IMPRESSI ON: SUSPECT GAME KEEPERS THUMB.; RECORDED 09/08/20 13 9:39AM BY QUENTIN MOREIRA MA, ANNOTATI ON/ADDEN DUM Doris Layton, [facility] [address] [facility] [address], [place], [address], [facility] 6 15:24:48 Viral disease [id number] Completed 200805/03/2014 RECORDED 12/29/19 09 8:28AM BY SYEDA SALAZAR MA, ANNOTATI ON/ADDEN DUM Doris Layton, [facility] [address] [facility] [address], [place], [address], [facility] 6 15:24:48 Strain of hamstrin g muscle [id number] 4 Completed 08/31/2014 Doris Layton, [facility] [address] [facility] [address], [place], [address], [facility] 6 15:24:48 Pain in thumb [id number] Completed 05/01/2017 VICKIE Belcher, [facility] 7 09:00:59 Pain in right lower limb [id number] Completed 05/01/2017 Tomasa Corcoran, MA [facility] 7 09:00:56 Low back pain 529744144 Active 2017 Daina russell MD [address] [facility] [address], [place], [address], [facility] 8 14:05:37 [facility] l tremor [id number] Active 2017 Daina russell MD [address] [facility] [address], [place], [address], [facility] 8 14:05:38 Problem Notes None recorded. Procedures Surgical History Date Name Laterality Status Provider Name and Address Organization Details Recorded Time No surg proc w/in 30 days completed Syeda Norman MA [facility] 07/12/2017 11:04:21 Imaging Results Imaging Date Name Status LastModified by Organiz ation Details LastModified Time 06/19/2018 XR, ankle completed [email or web address] [facility] [address] [place] [address], [place], [address], 06/20/2018 09:14:15 Procedure Notes None recorded. Medical Equipment None Reported. Allergies No known drug allergies Medications Name Sig Start Date Stop Date Status Note LastModified by Organization Details LastModified Time Benadryl Allergy 12.5 mg/5 mL oral liquid EVERY 6 HOURS 06/08 completed RECORDED 06/08/20 10 3:27PM BY WILVER SAHNI , OFFICE VISIT; Not Available Not Available Not Available ibuprofen 800 mg tablet THREE TIMES DAILY 12/13 completed RECORDED 12/25/19 12 8:54AM BY OJ MENDOZA, MEDICATI ON AUTO-MYAH CTIVATIO N; Not Available Not Available Not Available Analpram- HC 2.5 %-1 % rectal cream Insert 1 applicat ion 3 times a day by rectal route as directed for 10 days. 2017 active Not Available Not Available Not Avai lable ibuprofen 100 mg tablet EVERY 8 HOURS NEEDED 11/14 completed RECORDED 11/14/19 12 1:17PM BY WISAM CAMACHO, CHRIS ON/ADDEN DUM;THIS ORDER DISCONTI NUED PER MEDI-SPA N. Not Available Not Available Not Available hydrocort isone 1 %-pramoxi ne 1 % rectal foam 3-4 TIMES DAILY, TO RECTAL AREA 11/14 completed RECORDED 11/14/19 12 8:59AM BY QUENTIN MOREIRA MA, OFFICE VISIT; Not Available Not Available Not Available clotrimaz ole-betam ethasone 1 %-0.05 % topical cream APPLY TO THE AFFECTED AND SURROUND ING AREAS OF SKIN BY TOPICAL ROUTE 2 TIMES PER DAY IN THE MORNING AND EVENING FOR 2 WEEKS 05/01 completed Not Available Not Available Not Available mupirocin calcium 2 % topical cream APPLY A SMALL AMOUNT TO THE AFFECTED AREA BY TOPICAL ROUTE 3 TIMES PER DAY FOR 10 DAYS 05/01 completed Not Available Not Available Not Available permethri n 1 % topical liquid ONCE A WEEK 06/09 completed RECORDED 06/09/20 10 6:09AM BY ANTON KIM PA-C, ANNOTCHRISTIANNE ON/ADDEN DUM;THIS ORDER DISCONTI NUED PER [employer]-SPA N. Not Available Not Available Not Available ibuprofen 600 mg tablet Take 1 tablet 3 times a day by oral route as needed. 2018 active refill request; mom requesti ng 800? Not Available Not Available Not Available Aclovate 0.05 % topical cream BID 01/13 completed RECORDED 04/07/20 10 2:58PM BY ANTON KIM PA-C, MEDICATI ON AUTO-MYAH CTIVATIO N; Not Available Not Available Not Available medroxypr ogesteron e 150 mg/mL intramusc ular suspensio n Inject 1 mL every 3 months by intramus cular route. 07/12 completed Not Available Not Available Not Available naproxen 500 mg tablet Take 1 tablet twice a day by oral route for 15 days. 01/20 completed Not Available Not Available Not Available Delsym 30 mg/5 mL oral liquid,ex tended release EVERY 12 HRS NEEDED FOR COUGH 09/18 completed RECORDED 10/21/19 14 10:46AM BY OJ MENDOZA, MEDICATI ON AUTO-MYAH CTIVATIO N; Not Available Not Available Not Available medroxypr ogesteron e 150 mg/mL intramusc ular syringe Inject 1 mL every 3 months by intramus cular route for 90 days. 01/20 completed Not Available Not Available Not Available cyclobenz aprine 5 mg tablet Take 1 tablet every day by oral route for 7 days. 01/20 completed Not Available Not Available Not Available [employer] [facility] DAILY O 12/19 completed RECORDED 02/07/20 08 10:14AM BY DAINA MATTHEWS MD, MEDICATI ON AUTO-MYAH CTIVATIO N; Not Available Not Available Not Available Miralax ONCE TO TWICE DAILY 11/14 completed RECORDED 11/14/19 12 8:59AM BY QUENTIN MOREIRA MA, OFFICE VISIT; Not Available Not Available Not Available Thumb Stabilize r DAILY 07/17 completed RECORDED 07/17/20 13 11:04AM BY CHRIS MAYES ON/ADDEN DUM;842. 13 THUMB SPRAIN Not Available Not Available Not Available butalbita l-acetami nophen-ca ffeine 50 mg-300 mg-40 mg capsule 05/01 completed Not Available Not Available Not Available Vitals Date Recorded Body height Oxygen saturation Oxygen saturation in Arterial blood by Pulse oximetry Heart rate Body mass index (BMI) Body weight Body temperature Systolic blood pressure Diastolic blood pressure Provider Name and Address Organization Details Last Updated DateTime 7 161.29 cm 100 % 100 % 79 /min 22.2 kg/m2 41657.0 3 g 98.3 [degF] 116 mm[Hg] 72 mm[Hg] Tomasa Corcoran MA [facility] 7 13:34:50 Date Recorded Body height Body mass index (BMI) Body weight Body temperature Oxygen saturation Oxygen saturation in Arterial blood by Pulse oximetry Heart rate Systolic blood pressure Diastolic blood pressure Provider Name and Address Organization Details Last Updated DateTime 8 161.29 cm 21.8 kg/m2 34020.7 5 g 97.7 [degF] 98 % 98 % 81 /min 107 mm[Hg] 63 mm[Hg] Tomasa Corcoran MA [facility] 8 12:54:32 Date Recorded Body height Body mass index (BMI) Body weight Heart rate Oxygen saturation Oxygen saturation in Arterial blood by Pulse oximetry Body temperature Systolic blood pressure Diastolic blood pressure Provider Name and Address Organization Details Last Updated DateTime 8 161.29 cm 20.9 kg/m2 86256.0 8 g 70 /min 98 % 98 % 97.1 [degF] 118 mm[Hg] 60 mm[Hg] Rai Soriano [facility] 8 13:42:03 Date Recorded Body height Body mass index (BMI) Body weight Oxygen saturation Oxygen saturation in Arterial blood by Pulse oximetry Heart rate Body temperature Systolic blood pressure Diastolic blood pressure Provider Name and Address Organization Details Last Updated DateTime 8 161.29 cm 21.6 kg/m2 51713.1 5 g 98 % 98 % 88 /min 98.9 [degF] 107 mm[Hg] 54 mm[Hg] Kathy Sidhu MA [facility] 8 14:47:38 Date Recorded Body height Body mass index (BMI) Body mass index (BMI) Percentile per age and sex Body weight Body temperature Oxygen saturation Oxygen saturation in Arterial blood by Pulse oximetry Heart rate Systolic blood pressure Diastolic blood pressure Provider Name and Address Organization Details Last Updated DateTime 8 161.29 cm 20.6 kg/m2 35 % 08585 g 98.1 [degF] 98 % 98 % 84 /min 116 mm[Hg] 61 mm[Hg] Tomasa Corcoran MA [facility] 8 13:44:41 Social History Question Answer Notes LastModified by Organizat ion Details LastModified Time Tobacco Smoking Status Never Smoker VICKIE Miranda [facility] 08/31/2014 15:24:11 Do You Have An Advance Directive? No Information not available 07/12/2017 What Is Your Level Of Alcohol Consumption? Occasional Rare Information not available 07/12/2017 Animal Exposure? Yes Information not available 12/02/2014 Is Blood Transfusion Acceptable In An Emergency? Yes Information not available 12/20/2015 What Is Your Level Of Caffeine Consumption? Occasional Soda/coffee Information not available 12/02/2014 How Much Tobacco Do You Chew? None Information not available 07/12/2017 Are You Currently Employed? Yes [email or web address] Information not available 05/01/2017 What Type Of Diet Are You Following? REGULAR Information not available 12/02/2014 Which Illicit Or Recreational Drugs Have You Used? None Information not available 07/12/2017 What Is Your Occupation? [employer] Information not available 05/23/2018 What Is Your Home Situation? Mother Information not available 07/12/2017 Live Alone Or With Others? With Others Mom (Tara) Information not available 07/12/2017 Do You Take Precautions To Prevent Distracted Driving? Yes [email or web address] Information not available 05/01/2017 How Often Do You Need To Have Someone Help You When You Read Instructions, Pamphlets, Or Other Written Material From Your Doctor Or Pharmacy? Sometimes Information not available 07/12/2017 Have You Served In The ? Yes [employer] [email or web address] Information not available 09/04/2018 What Was The Date Of Your Most Recent Tobacco Screening? 09/04/2018 Information not available 04/16/2019 How Many Children Do You Have? 0 [email or web address] Information not available 05/01/2017 Performs Monthly Self-breast Exam? Yes [email or web address] Information not available 05/01/2017 What Is The Name Of Your School? [employer] Information not available 07/12/2017 Do You Use Your Seat Belt Or Car Seat Routinely? Yes Information not available 12/20/2015 Seat Belts Used Routinely Yes Information not available 12/20/2015 Are You Sexually Active? Yes Information not available 05/23/2018 Do You Have Any Siblings? 2 1 Sister, 1 Brother Information not available 07/12/2017 Smoke Alarm In Home Yes Information not available 12/20/2015 At What Age Did You Start Smoking Tobacco? 0 Information not available 07/12/2017 Are You Passively Exposed To Smoke? No Information not available 12/02/2014 How Much Tobacco Do You Smoke? No Information not available 07/12/2017 What Types Of Sporting Activities Do You Participate In? Soccer In High School Information not available 07/12/2017 Do You Use Sunscreen Routinely? Yes Information not available 05/23/2018 How Many Years Have You Smoked Tobacco? 0 Information not available 07/12/2017 Year In School College Inform ation not available 07/12/2017 Sex: Unknown Functional Status Question Answer Note LastModified by Organizat ion Details LastModified Time Are you able to care for yourself? Yes Information not available 12/20/2015 What is your exercise level? Occasional 1-2 x week Information not available 07/12/2017 Mental Status None recorded. Family History Relationship Description Onset Age of this Age Resolved Age Notes LastModified by Organization Details LastModified Time Maternal Grandfather Diabetes mellitus [email or web address] Not available 2015 14:33:45 Maternal Grandfather Asthma [email or web address] Not available 2015 14:33:45 Father No current problems or disability [email or web address] s Not available 07/12/2017 11:03:16 Mother No current problems or disability [email or web address] s Not available 07/12/2017 11:03:17 Notes:No FH of breast or col on cancer Medical History Condition Response Coronary Artery Disease N Other N Gout N Kidney Stones N Blood Diseases N Hyperthyroidism N Breast Cancer N mrsa exposure N COPD N Depression N Lung Disease N Hypothyroidism N Defects or Inherited Disease N Developmental or Behavioral Disorders N Breast Problem N Anesthesia Complications N Headaches/Migraines N Varicose Veins N Anxiety Disorder N Muscle, Joint, or Bone Problems N Obesity N Vision or Eye Problems N Arthritis N Head Injury/Concussion N Polyps N Infertility N Mental Disorder N Congenital Anomalies N Acid Reflux (GERD) N Cancer N Stroke N ADHD N Endometriosis N High Cholesterol N Liver Disease N Fibromyalgia N Headaches N Kidney Disease N Heart Problems N Ear or Hearing Problems N Hospitalizations N Thyroid Problems N GI Problems N Developmental Delay N Acne N Skin Problems N Eating Disorder N Anemia N Constipation N Bladder Problems N Mental Illness N Ovarian Cancer N Diabetes N Bedwetting N Blood Transfusions N Seizures/Epilepsy N Heart Problems/Murmur N Tuberculosis N AIDS/HIV N Congestive Heart Failure (CHF) N Eczema N Diverticulitis N Abuse/Domestic Violence N Asthma N Allergies N Reflux/GERD N Hepatitis N Heart Disease N Pulmonary Embolism N Hypertension N Osteoporosis N Chicken Pox N Autism Spectrum Disorder (ASD) N Gynecological History Statement/Question Response Menses Monthly Y Duration of Flow (days) 3 Flow Moderate Age at Menarche 11 Current Control Method None LMP Approximate Obstetrics History GPAL:G 0 P 0 0 0 0 Immunizations Vaccine Type Date Status Note Provider Nam e and Address Organization Details Recorded Time HPV, quadrivalent 5 completed Not Available [facility] 10/10/2019 02:21:33 meningococcal MCV4P 6 completed Not Available [facility] 10/10/2019 02:21:51 HPV9 6 completed Not Available [facility] 10/10/2019 02:21:59 Tdap 7 completed Not Available [facility] 10/10/2019 02:21:46 Influenza, split virus, quadrivalent, PF 7 completed Not Available [facility] 10/10/2019 02:22:11 Influenza, split virus, quadrivalent, PF 4 completed Not Available [facility] 10/10/2019 02:21:56 Influenza, split virus, quadrivalent, PF 8 completed Not Available [facility] 10/10/2019 02:22:16 Hep B, adolescent or pediatric 8 completed Not Available [facility] 04/06/2014 13:59:23 Hep B, adolescent or pediatric 8 completed Not Available [facility] 04/06/2014 13:59:23 D[facility]P 8 completed [facility] 04/06/2014 13:59:23 IPV 8 completed Not Available [facility] 04/06/2014 13:59:24 Hib (HbOC) 8 completed Not Available [facility] 04/06/2014 13:59:24 Hib (HbOC) 8 completed Not Available [facility] 04/06/2014 13:59:24 IPV 8 completed Not Available [facility]04/06/2014 13:59:24 DTaP 8 completed Not [facility] 13:59:24 Hep B, adolescent or pediatric 8 completed Not Available [facility]04/06/2014 13:59:24 DTaP 9 completed Not Available [facility]/06/2014 13:59:24 IPV 9 completed Not Available [facility] 04/06/2014 13:59:24 Hib (HbOC) 9 completed Not Available [facility] 04/06/2014 13:59:24 varicella 9 completed Not Available [facility] 04/06/2014 13:59:24 MMR 9 completed Not Available [facility] 04/06/2014 13:59:24 IPV 9 completed Not Available [facility] 04/06/2014 13:59:24 Hib (HbOC) 9 completed Not Available [facility] 04/06/2014 13:59:24 DTaP 0 completed Not Available [facility] 04/06/2014 13:59:24 DTaP 2 completed Not Available [facility] 04/06/2014 13:59:24 IPV 2 completed Not Available [facility] 04/06/2014 13:59:24 MMR 2 completed Not Available [facility] 04/06/2014 13:59:24 Tdap 7 completed Not Available [facility] 04/06/2014 13:59:24 Influenza, split virus, trivalent, preservative 0 completed Not Available [facility] 04/06/2014 13:59:24 Meningococcal MCV4O 0 completed Not Available [facility] 04/06/2014 13:59:24 Influenza, split virus, trivalent, preservative 1 completed Not Available [facility] 04/06/2014 13:59:24 varicella 1 completed Not Available [facility] 04/06/2014 13:59:24 Influenza, split virus, trivalent, preservative 2 completed Not Available [facility] 04/06/2014 13:59:24 HPV, quadrivalent 5 completed Not Available [facility] 10/10/2019 02:21:33 Past Encounters Encounter ID Performer Location Encounter Start Date Encounter Closed Date Diagnosis/Indication Diagnosis SNOMED-CT Code Diagnosis ICD10 Code Diagnosis Note [id number] [facility]ce [address] [facility] [place] [address] 05/22/2006 00:00:00 [id number] autoEComm erce [address] [place] [address] 03/20/2004 00:00:00 [id number] autoEComm erce [address] [facility] [place] [address] 04/04/2003 00:00:00 [id number] autoEComm erce [address] [facility] [place] [address] 03/19/2002 00:00:00 [id number] autoEComm erce [address] [facility] [place] [address] 01/16/2007 00:00:00 [id number] autoEComm erce [address] [facility],[address] [place] [address] 09/01/2007 00:00:00 [id number] autoEComm erce [address] [facility] [place] [address] 11/20/2007 00:00:00 [id number] autoEComm erce [address] [facility] [place] [address] 04/14/2008 00:00:00 [id number] autoEComm erce [address] [facility],[address] [place] [address] 12/28/2008 00:00:00 [id number] autoEComm erce [address] [facility] [address] [place] [address] 01/27/2009 00:00:00 [id number] autoEComm erce [address] [facility],[address] [place] [address] 07/19/2009 00:00:00 [id number] auto[address]Comm erce [address] [place] [address] 08/11/2009 00:00:00 [id number] auto[address]Comm erce [address] [place] [address] 12/14/2009 00:00:00 [id number] [address]Comm [address] [place] [address] 06/08/2010 00:00:00 [id number] [address]Comm er[address] [place] [address] 07/18/2010 00:00:00 [id number] autoEComm erce [address] [place] [address] 03/23/2011 00:00:00 [id number] autoEComm erce [address] [facility],[address] [place] [address] 04/05/2011 00:00:00 [id number] autoEComm erce [address] [facility] [place] [address] 06/14/2011 00:00:00 [id number] autoEComm erce [address] [facility] [address] [place] [address] 11/14/2011 00:00:00 [id number] autoEComm erce [address] [facility],[address] [place] [address] 06/19/2012 00:00:00 [id number] auto[address]Comm erce [address] [place] [address] 07/15/2012 00:00:00 [id number] autoEComm erce [address] [place] [address] 01/09/2013 00:00:00 [id number] autoEComm erce [address] [facility] [place] [address] 07/14/2013 00:00:00 [id number] autoEComm erce [address] [place] [address] 08/13/2013 00:00:00 [id number] [facility]Comm [facility]ce [address] [facility] [address] [place] [address] 09/08/2013 00:00:00 [id number] Daina Price MD Main Office [address] [facility] [place] [address] 06/16/2014 11:17:51 06/16/2014 11:55:57 Needs influenza immunization [id number] Strain of hamstring muscle [id number] 04 [id number] Main Office [address] [facility] [place] [address] 08/31/2014 15:16:48 08/31/2014 15:51:18 Pain in thumb 568803093 mom will call neos once x-ray done [id number] Main Office [address] [facility] [place] [address] 10/20/2014 15:17:05 10/20/2014 15:40:09 Administration of viral vaccine [id number] Daina Price MD Main Office [address] [facility] [place] [address] 12/02/2014 14:11:26 12/02/2014 15:07:08 Well child 136017464 Instructio n on proper breast self exams. Growing and developing well. Age appropriat e anticipato ry guidance provided. Regular dental care and appropriat e car safety advised. Immunizati on status updated. Administra tion of viral vaccine [id number] Rai Soriano Main Office [address] [address] [place] [address] 03/31/2015 10:14:13 03/31/2015 10:36:57 Pain in right lower limb 982257017 will check xray but suspect probable contusion, recommend rest/ice/N SAIDs [id number] Daina Price MD Main Office [address] [address] [place] [address] 12/20/2015 14:17:28 12/20/2015 15:14:02 Well child 771738164 Z00.129 Growing and developing well. Age appropriat e anticipato ry guidance provided. Regular dental care and appropriat e car safety advised. Immunizati on status updated. Gardasil #3 given today as well as meningitis booster. 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 She should refrain from shaving for now, use mupirocin as directed, may use a scrub to area daily for now then once weekly. May need to use a different form of hair removal. 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 392971975 Z20.2 on depo, due for another shot, not recently sexually active, no symptoms, in past used condoms, check below for routing screening, no concerns and no need for pelvic [id number] Daina Price MD Main Office [address] [address] [place] [address] 05/07/2017 13:36:59 05/07/2017 14:05:17 Contraception care management 357588946 Z30.42 [id number] Luis myers Main Office [address] [place] [address] [place] [address] 07/12/2017 10:31:06 07/12/2017 11:30:35 Needs influenza immunization 418609334 Z23 Menorrhagia 059094235 N9 2.0 Sx were present while she was in [place] and notes she was in a higher stress situation. Sx have resolved since she came home on Saturday. May be stress related. If sx recur please call/ return Contracept [facility] management [id number] Z30.9 continue depo as scheduled, bro in July [id number] Daina Price MD Main Office [address] [facility] [address] [place] [address] 07/30/2017 13:24:19 07/30/2017 14:19:33 Lumbar sprain 899716644 S33.9XXA Heat , NSAIDs , muscle relaxants, back stretches BID as discussed. If persists after 3 weeks, PT referral. 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 will check labs. External hemorrhoids 239 41153 K64.4 + external hemorrhoid x 2 noted, tender but not indurated, will tx with cream TID, suggest high fiber foods, lots of water, more fruits and veggies, whole grains and stool softener as needed. Health Concerns Section Related Observation LastModified by Organization Detai ls LastModified Time None Recorded Concern Status LastModified by Organization Details LastModified Time None Recorded Advance Directives Directive N: Payers Encounter Date Sequence Insurance Name Policy Number Policy Sahu Covered Member ID Sahu Member ID Guarantor Name 07/30/2017 2 [place] [facility] Ashley Acevedo [id number] Ashley Acevedo 12/18/2017 1 [place] [id number] [id number] 12/18/2017 2 [place] [facility] Ashley Acevedo [id number] Ashley Acevedo 01/20/2018 1 [place] [id number] Ashley Acevedo [id number] Ashley Curtis 01/20/2018 2 [place] [facility] Ashley Acevedo [id number] Ashley Acevedo 05/23/2018 1 [place] [id number] Ashley Acevedo [id number] Ashley Curtis 05/23/2018 2 [place] [facility] Ashley Acevedo [id number] Ashley Acevedo 09/04/2018 1 [place] [id number] Ashley Acevedo [id number] [facility] 09/04/2018 2 [place] [facility] Ashley Acevedo [id number] Ashley Acevedo Notes Date Note Type Note Provider Name and Address Organization Details Recorded Time 07/30/2017 text/html 17 year old fema le c/o 3 week onset of low back pain not helped with occasional OTC NSAIDs. Worse with prolonged sitting and walking. NOt at night. NO h/o acute injury. , but reports lifting heavy boxes and crates at DD. NO radiation to legs, weakness or numbness. Tried PRN MOtrin and BenGay. Daina Price MD [address] [place], [address], [facility] [place] 07/30/2017 15:08:38 12/18/2017 text/html Pt is here for a followup of low back pain. Pt has started oging to the gym, it is better Works at [employer], she tried to lift with proper form Hernan de anda, [facility] 12/18/2017 16:48:30 01/20/2018 text/html Back PainReporte d bypatient.Location:kurt n is not radiating Severity:same Aggravating Factors:movement/posit ioning Associated Symptoms:no fever; no weak limbs; no numbness of the legs/feet; no tingling; no incontinenceNotes:Has been an intermittent problem and is generally not helped by NSAIDs Has been having a slight tremor in her right hand mostly noted by her mother. She denies any changes. No new meds or food or supplements. She drinks some caffeine but her intake hasn't changed. Denies drugs, alcohol. She is right handed and it doesn't interfere with eating, drinking or writing. There is no known fhx of tremors. She would also like to be tested for STD. Does not always use protection. Daina Price MD [address] [address], [place], [address], [facility] 01/20/2018 15:10:50 05/23/2018 text/html Generic HPI TemplateReported bypatient.Notes:Presen ts for PE. no concerns. starting at [employer] for [employer], will be playing soccer. Hernan Herber de anda, [facility] 05/23/2018 15:23:45 09/04/2018 text/html Generic HPI TemplateReported bypatient.Notes:Has noticed a lump on her bottom for a few months, comes and goes yesterday felt bigger and painful. it does bleed when she wipes and in toilet, she has not been using anything for it. Also concerned about her radha, she notes she eats a lot, eats 3 meals a day plus snacks, snacks are junk, otherwise well balanced. she is not trying to lose weight but has lost 6lbs since last visit, not exercising. she denies havign diarrhea or constipation, notes regular stool. Doris Layton BANNERABIEL [facility] [address], [place], [address], [facility] 09/04/2018 14:12:22 OBGyn Episode No OBEpisode recorded.
== END 2024-12-10 12:03 | disposition home or self-care (01) ==
PROVIDERS: PCP Nurse Practitioner Family; Visit Provider Physician Assistant
DX: O22.43 Hemorrhoids in pregnancy, third trimester (principal)

== ENCOUNTER → 2024-12-10 11:17 | Outpatient (BNVA) | payer OTHER, SELFPAY | PROVIDERS: PCP Nurse Practitioner Family; Visit Provider Physician Assistant | DX: O22.43 Hemorrhoids in pregnancy, third trimester (principal) | CPT/HCPCS: 99212 ==

== ENCOUNTER 2025-05-19 12:38 | Outpatient (REF) | payer OTHER, SELFPAY ==
[2025-05-19 18:26] LABS: Hematocrit 40.0 % (37.0-47.0); Hemoglobin 13.4 g/dl (12.0-16.0); Mean Corpuscular HGB Conc 33.5 g/dl (31.0-35.0); Mean Corpuscular Hemoglobin 27.5 pg (27.0-33.0); Mean Corpuscular Volume 82.0 fL (80.0-98.0); NRBC Abs Auto 0.000 X10*3/uL (0.0-0.012); NRBC Pct Auto 0.0 /100WBC (0.0-0.2); Platelet Count 289 X10*3/uL (160-400); Red Blood Count 4.88 X10*6/uL (4.20-5.50); White Blood Count 6.3 X10*3/uL (4.8-10.8)
[2025-05-19 18:41] LABS: Microalbum/Creatinine Ratio Ur 13.6 ug/mg cr (<30)
[2025-05-19 18:42] LABS: Alanine Aminotransferase 31 U/L (0-31); Albumin Level 4.6 g/dL (3.5-5.0); Alkaline Phosphatase 89 U/L (39-117); Anion Gap 12 (12-20); Aspartate Amino Transferase 21 U/L (5-31); Blood Urea Nitrogen 10 mg/dL (9-16); Calcium 9.3 mg/dL (8.4-10.2); Carbon Dioxide 25 mmol/L (22-29); Chloride 104 mmol/L (96-108); Cholesterol 201 mg/dL (<200); Estimated Glomerular Filt Rate > 60; HDL Cholesterol 61 mg/dL (>40); Potassium 4.0 mmol/L (3.3-5.1); Sodium 137 mmol/L (135-145); Total Protein 7.3 g/dL (6.5-8.0); Triglycerides 170 mg/dL (<150)
[2025-05-19 19:03] LABS: Folate 11.4 ng/mL (> or = 4.0); Vitamin B12 302 pg/mL (200-900)
[2025-05-19 19:56] LABS: Hemoglobin A1C 116.9304 umol/L
[2025-05-19 20:47] LABS: Free T4 (Free Thyroxine) 1.02 ng/dL (0.71-1.85)
== END 2025-05-19 12:39 | disposition home or self-care (01) ==
LOC: HO.WFDLDS 12:38
PROVIDERS: PCP Nurse Practitioner Family; Visit Provider Nurse Practitioner Family
DX: Z00.00 Encounter for general adult medical examination without abnormal findings (principal); Z76.89 Persons encountering health services in other specified circumstances; H53.8 Other visual disturbances; O99.345 Other mental disorders complicating the puerperium; F41.8 Other specified anxiety disorders; Y99.1 Military activity; Z86.2 Personal history of diseases of the blood and blood-forming organs and certain disorders involving the immune mechanism
CPT/HCPCS: 36415; 80053; 80061; 82043; 82306; 82570; 82607; 82746; 83036; 84439; 84443; 85027; 96127; 99202

== ENCOUNTER 2025-05-19 12:38 | Outpatient (AMB) | payer OTHER, SELFPAY ==
--- NOTE | 2025-05-19 12:48 | A.OFFPC_ITS ---
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 Required: No Is last menstrual period known: Yes Last menstrual period: 04/23/25 Post menopausal: No Patient : No Allergies No Known Allergies Allergy (Verified 05/19/25 13:11) Medication List - Last Reconciled 05/19/25 by HANNAH Can No Known Home Meds Tobacco use date assessed: 05/19/25 Dental Screening Dental Screen Date: 05/19/25 Did you have a dental visit in the last 12 months?: Yes Did you have a dental problem in the last 6 months where you did not have access to dental care?: No Was dental information given to patient?: Patient has dentist HPI HPI Comments History of Present Illness Details 25 y/o F with Iron def anemia, hemorrhoi ds, Surgery: wisdom teeth , perineal repair s/p childbirth Social: Dtr (2022), Sig Other, Fhx: Mom and Dad alive and well; 3 brothers; 6 sisters all alive and well. De nies cancer, CVD in grandparents. One grandparent w/ Alzheimers Health Maintenance Tdap 2024 Pap 2023 Specialist: Miguel Rivers History of Present Illness - The patient is a 25-year-old female pr esenting to establish care & for CPE - Past medical history includes iron def iciency anemia and hemorrhoids during . - Reports anxiety symptoms, d escribing chest tightness and feeling mentally checked out. - Symptoms began after childbirth February 09. - Experiencing attachment anxiety relate d to returning to work in the next week. Thought she would be out until Jun. - No prior counseling, but attempted dur ing without follow-up. Interested currently. - No depression or mood disorders report ed until . Past Surgical History - [place] teeth extraction - Sutures post- Family History - Grandmother: Alzheimer's disease - No family history of cancer, heart dis ease, heart attack, or stroke - All siblings are alive and well. 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 - Safe living environment reported Health Maintenance - Referral for an eye exam - reports denny rred vision - Recommendation for counseling to addre ss anxiety symptoms - Laboratory blood work planned to check for anemia Review of Systems - Constitutional: Denies weight loss, fe juani - Eyes: Denies vision changes; referral for eye exam placed - Skin: Reports rashes during , which improve when not scratched - Cardiovascular: Reports chest tightnes s sensation - Respiratory: Denies dyspnea or cough - Gastrointestinal: Reports irregular any wel movements; no active complaint - Obstetrics/Gynecology: Resumed menstru ation ; denies possibility of - Psychological: Reports anxiety and att achment feelings Physical Exam General: Well developed, well nourished, in no acute distress. Appears stated age. Head: Normocephalic, atraumatic. Eyes: Pupils are equal, round and reactive to light and accommodation. Conjunctivae are clear. Vision grossly normal. Ears: TMs clear AU, EACS WNL. Patient reports increased earwax production post- , but ears are currently clear. Nose: Patent, without discharge. Neck: Supple, no adenopathy or thyromegaly. Breast: Edu on SBE. Lungs: Clear to auscultation bilaterally. No rales, rhonchi or wheeze noted. Good air flow in all ta. Heart: Regular rate and rhythm. No murmurs, click, rubs or gallops are noted. Abdomen: Bowel sounds present in all quadrants. The abdomen is soft, nontender, with no masses or organomegaly noted. No hernias are noted. Patient reports intermittent bowel movements. : Deferred. 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 Patient has resumed menstruation. Pulses: Peripheral pulses are equal and palpable bilaterally. Extremities: No clubbing, cyanosis nor edema is noted. Neurologic: Gait and station normal. Cranial Nerves 2-12 intact. Motor strength grossly symmetrical and intact. No sensory loss. Balance normal. Skin: No rashes, ulcers, or lesions noted on the back. Psych: Normal eye contact, affect and mood appropriate, and normal interactions. Patient is alert and appropriate to context. Results Pending Discussion Notes We discussed at length the concerns regarding the symptoms of anxiety that have arisen since the of her child. I provided reassurance about the sensation of weight on her chest being potentially due to anxiety or anemia. A referral for lab work to assess her blood counts was agreed upon, with an offer of further communication through a patient portal once results are in. I recommended counseling for her anxiety. 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 The entire process of how her medical records and lab results can be accessed via the patient portal was explained, providing her with options for seamless communication with myself. She was advised on maintaining safe environments and to receive follow-up calls regarding counseling and eye exams. Patient was given time to ask questions. All questions were answered to their satisfaction. Assessment and Plan 1. Iron Deficiency Anemia - Arrange lab tests to evaluate current status. 2. Hemorrhoids - No present treatment needed. 3. Anxiety - Recommend counseling. - Account Liaison on discussing work schedule wi ASSISTANT PROFESSOR OF MARINE BIOLOGY. Patient Instructions - Get lab work done today for blood coun t checks. - Expect a call within two weeks about c ounseling and eye exams. - Use patient portal for communication a nd to view lab results. - Follow up with ASSISTANT PROFESSOR OF MARINE BIOLOGY if extension for leave is necessary. - Ensure to address any immediate concer ns through the portal. - RTO 1 year CPE, sooner PRN Consent Patient was informed and verbally consented to the use of an ambient scribe for clinic note documentation during this visit. An additional 20 minutes was spent addressing the problem(s) noted at todays vis it. This includes time spent before the visit reviewing the chart, time spent during the visit, and time spent after the visit on documentation reviewing laboratory results, diagnostic imaging, medications, performing a medically necessary evaluation, counseling on diagnoses, care coordination, ordering appropriate tests, ordering appropriate medications, review of tests performed by other providers, reporting test results with the patient, communication with other healthcare providers. [facility] Medical History (Updated 05/19/25 @ 18:40 by Amy Pena, [facility]) Hemorrhoids History of Papanicolaou smear of cervix (~2023) Family History (Updated 05/19/25 @ 13:06 by Sarah Poon MA) Mother Asthma Social History (Updated 05/19/25 @ 13:01 by Sarah Poon MA) Housing: Apartment Patient Tobacco Use Status: Never used Tobacco e-Cigarette/Vaping Use: Currently Using Second Hand Smoke Exposure: No service: Yes Current occupational status: employed Current occupation: [employer] Current occupational exposures/hazards: No Cognitive needs: No Hearing needs: No Vision needs: No Female Reproductive History Menstrual Date of last menstrual period: 04/23/25 Questionnaire PHQ-9 Over the last 2 weeks, how often have you been bothered by any of the following problems? 1. Little interest or pleasure in doing things: not at all 2. Feeling down, depressed, or hopeless: not at all 3. Trouble falling or staying asleep, or sleeping too much: not at all 4. Feeling tired or having little energy: not at all 5. Poor appetite or overeating: not at all 6. Feeling bad about yourself - or that you are a failure or have let yourself or your family down: not at all 7. Trouble concentrating on things, such as reading the newspaper or watching television: not at all 8. Moving or speaking so slowly that other people could have noticed. Or the opposite - being so fidgety or restless that you have been moving around a lot more than usual: not at all 9. Thoughts that you would be better off or of hurting yourself in some wa y: not at all Total score: 0 Depression Screening Interpretation: Negative Depression Screening Done: Yes 61429 - PHQ-9 Billing: Yes Source: Developed by Drs. Lopez Sanches, Elvira Jackson, Jeremy Morales and colleagues, with an educational emma from [employer]. Thrive Questionnaire Date Thrive assessed: 05/19/25 I am a: Patient What is your living situation today?: I have a steady place to live Within the past 12 months, did the food you bought not last and you didn't have the money to get more?: Never true Within the past 12 months, did you worry whether your food would run out before you got money to buy more?: Never true Do you have trouble paying for medicines?: No Do you have trouble getting transportation to medical appointments?: No Do you have trouble paying your heating and electricity bill?: No Do you have trouble taking care of your child, family member or friend?: No Do you have trouble with day-to-day activities such as bathing, preparing meals, shopping, managing finances, etc.?: No Are you currently unemployed and looking for a job?: No Are you interested in more education?: Yes Please select the resources that you would like help with: Housing/Retirement and Food Currently or been in a relationship where the following occur: No concerns reported THRIVE Score: 0 AUDIT C Alcohol Use Questionnaire (AUDIT-C) 1. How often do you have a drink containing alcohol?: 2-4 times a month 2. How many drinks containing alcohol do you have on a typical day when you are drinking?: 1 or 2 3. How often do you have six or more drinks on one occasion?: Less than monthly Total Score: 3 Score Reviewed/Action Taken: Yes NEFTALI-7 AMB Questionnaire NEFTALI-7 Date NEFTALI - 7 assessed: 05/19/25 Feeling nervous, anxious, or on edge: 0 = Not at all Not being able to stop or control worryin = Not at all Worrying too much about different things: 0 = Not at all Trouble relaxin = Not at all Being so restless that it is hard to sit still: 0 = Not at all Becoming easily annoyed or irritable: 0 = Not at all Feeling afraid as if something awful might happen: 0 = Not at all Total NEFTALI-7 score (0-4 normal; 5-9 mild; 10-14 moderate; 15-21 severe): 0 Source: Developed by Drs. Lopez Sanches, Elvira Jackson, Jeremy Morales and colleagues, with an educational emma from [employer]. NEFTALI-7 Assessment Billing NEFTALI-7 Assessment Tool: NEFTALI-7 Assessment 79770 Physical exam (Primary Care) Vital Signs: Last Vital Signs Temp 98.2 F 05/19/25 13:02 Pulse 77 05/19/25 13:02 Resp 16 05/19/25 13:02 BP 118/55 L 05/19/25 13:02 Pulse Ox 99 05/19/25 13:02 Oxygen Delivery Method Room Air 05/19/25 13:02 BMI result Body Mass Index 29.2 Tobacco/Smoking Status: Tobacco use Status Tobacco use date assessed 05/19/25 05/19/25 13:02 Patient Tobacco Use Status Never used Tobacco 05/19/25 13:01 e-Cigarette/Vaping Use Currently Using 05/19/25 13:02 PHQ-9: PHQ-9 Score PHQ-9: Total score 0 05/19/25 17:05 Depression Screening Interpretation: Negative Thrive Assessment: Date of Thrive Assessment Date Thrive assessed 05/19/25 05/19/25 12:58 Currently or been in a relationship where the following occur: No concerns reported Coding Level of Care Code New Pt Level 3 (48868) New Pt Prev Care 18-39yr(57212 Diagnoses Encounter to establish care with new provider Z76.89 Blurred vision, bilateral H53.8 Hx of iron deficiency anemia Z86.2 activity status Y99.1 Laboratory exam ordered as part of routine general medical examination Z00.00 anxiety O99.345; F41.8 Encounter for general adult medical examination without abnormal findings Z00.00 Additional Codes NEFTALI-7 Assessment Billing - NEFTALI-7 Assessment Tool: NEFTALI-7 Assessment 43496 ([id number]) PHQ-9 - 74981 - PHQ-9 Billing: Yes ([id number]) Assessment & Plan Assessment & Plan (1) Encounter to establish care with new provider: Code(s): Z76.89 - Persons encountering health services in other specified circumstances (2) Blurred vision, bilateral: Code(s): H53.8 - Other visual disturbances Category: Medical (3) Hx of iron deficiency anemia: Code(s): Z86.2 - Personal history of diseases of the blood and blood-forming organs and certain disorders involving the immune mechanism Category: Medical (4) activity status: Code(s): Y99.1 - activity Category: Medical (5) Laboratory exam ordered as part of routine general medical examination: Code(s): Z00.00 - Encounter for general adult medical examination without abnormal findings Category: Medical (6) anxiety: Code(s): O99.345 - Other mental disorders complicating the puerperium; F41.8 - Other specified anxiety disorders Category: Medical (7) Encounter for general adult medical examination without abnormal findings: Onset Date: ~05/19/25 Code(s): Z00.00 - Encounter for general adult medical examination without abnormal findings Category: Medical Plan . Orders: Orders Lipid Panel Today Z00.00 - Encounter for general adult medical examination without abnormal findings TSH reflex Free T4 Today Z00.00 - Encounter for general adult medical examination without abnormal findings Vitamin D 25-OH Total Today Z00.00 - Encounter for general adult medical examination without abnormal findings Complete Blood Count no Diff Today Z00.00 - Encounter for general adult medical examination without abnormal findings Comprehensive Met. Panel Today Z00.00 - Encounter for general adult medical examination without abnormal findings Hemoglobin A1c Today Z00.00 - Encounter for general adult medical examination without abnormal findings Microalbumin, Random (w Creat) Today Z00.00 - Encounter for general adult medical examination without abnormal findings Vitamin B12 and Folate Today Z00.00 - Encounter for general adult medical examination without abnormal findings Referrals Optometry Referral H53.8 - Other visual disturbances Nurse Navigator Referral F41.1 - Generalized anxiety disorder Patient Instructions: Walk-In Care (Urgent Care): We Make it Easy Walk-in for urgent medical issues such as: ? Seasonal Allergies ? Insect Bites ? Cough ? Diarrhea ? Acute Asthma Attacks ? Back, Knee or Joint Pain ? Ear Infection ? Fever without a Rash ? Headaches ? Nausea ? [place] [facility], Rash or Skin Irritation ? Sore Throat ? Sports Physicals ? Vomiting Most insurances are accepted. Patients do not need to be part of the [facility] to seek care at the walk-in clinic. Locations [facility] , [place] [address] ? [phone] [facility] Walk-In Care in [place] provides services to ages 18 and over. Open Saturday-Saturday: 7 a.m. to 5 p.m. and Saturday: 9 a.m. to 3 p.m.* *Hours may vary due to staffing availability. To confirm Walk-In Care hours in [place], please call [phone]. [address] [place] [address] ? [phone] [facility] Walk-In Care in [place] provides services to ages 12 and over. Open Saturday-Saturday: 8 a.m. to 5 p.m. Hours may vary due to staffing availability. To confirm Walk-In Care hours in [place], please call [phone]. LABORATORY SERVICES: [facility] Lab ? Primary Location [address] [place] [address] Saturday through Saturday 6:00 AM ? 5:00 PM Saturday 7:00 AM ? 11:00 AM* [phone] [facility] Lab is centrally located near the front entrance of the [facility] for easy outpatient access. Convenient parking is provided for outpatients. *Hours may vary due to staffing availability. To confirm Laboratory hours for any location, please call [phone]. Offsite Location For your convenience, we offer offsite laboratory draw stations at the following locations: [address] [place] [address] ? [facility] [address] [facility], [address], [place] Saturday through Saturday 7:30 AM ? 1:00 PM* [phone] *Hours may vary due to staffing availability. To confirm Laboratory hours for any location, please call [phone]. [place] ? [address] Saturday through Saturday 6:00 AM ? 3:30 PM* Saturday 6:30 AM ? 3 PM* [phone] *Hours may vary due to staffing availability. To confirm Laboratory hours for any location, please call [phone] [place] [address] Saturday through Saturday 7:30 AM ? 4:00 PM* [phone] *Hours may vary due to staffing availability. To confirm Laboratory hours for any location, please call [phone] [place] [address] Saturday through 9:00 AM ? 4:00 PM* *Hours may vary due to staffing availability. To confirm Laboratory hours for any location, please call [phone]. Appointments are not necessary. Walk-ins are welcome. Like all the departments throughout the [facility], our Lab undergoes frequent reviews to ensure the quality and accuracy of test results, and our staff takes special pride in its status as a nationally accredited facility. Patient Portal: [facility] ONE PATIENT. ONE RECORD. BETTER CARE. [facility] has a fully integrated, cutting- edge mobile electronic health information system that has revolutionized the way we care for our patients and manage our organization. This system improves communication and coordination enabling us to provide safe, higher-quality care, and an overall positive experience for staff and patients. Our first priority, as always, is to deliver the highest quality care possible. The system is running in the background supporting that priority. This portal is for all [facility] services and practices. If you are experiencing any technical difficulties with enrolling or logging into the Patient Portal please complete the [facility] Patient Portal Technical Support Form. [facility] now offers a new secure on-line interactive tool for patients to review their health information ? ?Patient Portal. This interactive web portal will enable patients and their families to take an active role in their care by providing easy, secure access to their health information via the internet. The Patient Portal provides patients with instant access to their health informa tion, including laboratory results, medications, allergies, demographic information, visit history, and more. In addition to managing their own care, parents and health care proxies with authorized consent will appreciate the ability to access the records of those individuals for whom they provide care. Please note: if you wish to gain access (Proxy) to another patient?s portal, you will be required to come to the Medical Records Department in person at [facility]. Both the patient giving proxy access and the proxy will need to provide photo identification and complete the appropriate authorization. The Patient Portal also allows track their appointments online. The [facility] Patient Portal also saves patients time by allowing them to submit updates to their demographic and contact information prior to their visits. Portal email notifications will also alert patients to any new activity on their portal, such as test results and new appointments. In order to initially enroll in the [facility] Patient Portal, you will need to enter some required information including the following: * your [facility] Medical Record number * your personal home email address * name * date of Please note: In order to enroll in the [facility] Patient Portal, we need to have your email address on file in your electronic medical record. ?The email address needs to be specific for one person (yourself) in order for your Portal enrollment to be successful. ?You can update your email address in person with our Registration staff when you are registering for a hospital visit. ?Otherwise, you will need to come to the Health Information Management (Medical Records) Department at [facility]. ?We are open from Saturday ? Saturday from 7:30 a.m. ? 4:30 p.m. ?You will be required to present a photo id. Once you have successfully enrolled in the Patient Portal, you will receive a one-time user id and password for the Portal, sent to your email address. ?This will allow you to log into the Patient Portal within 99 hrs and reset your own logon id and password, and define personal security questions. ?Once your permanent login and password have been set, you can log into the [facility] Patient Portal at any time via the blue button above or from the Portal Logon button on any page of the [facility] website. [facility] encourage all of our patients to enroll in Patient Portal as it presents a valuable opportunity for patients and their families to actively participate in their care and stay healthy Welcome to [facility]. ?We look forward to working with you. Health screenings for women You should visit your health care provider from time to time, even if you are healthy. The purpose of these visits is to: Screen for medical issues Assess your risk for future medical problems Encourage a healthy lifestyle Update vaccinations and other preventive care services Help you get to know your provider in case of an illness Information Even if you feel fine, you should still see your provider for regular checkups. These visits can help you avoid problems in the future. For example, the only way to find out if you have high blood pressure is to have it checked regularly. High blood sugar and high cholesterol levels also may not have any symptoms in the early stages. A simple blood test can check for these conditions. There are specific times when you should see your provider or receive specific health screenings. The [place] Preventive Services Task Force publishes a list of recommended screenings. Below are screening guidelines for women ages 18 to 39. BLOOD PRESSURE SCREENING Your blood pressure should be checked at least once every 3 to 5 years if: Your blood pressure is in the normal range (top number less than 120 mm Hg and bottom number less than 80 mm Hg) You don't have risk factors for high blood pressure Ask your provider if you need your blood pressure checked more often if: The top number is 120 to 129 mm Hg or the bottom number is 70 to 79 mm Hg You have diabetes, heart disease, kidney problems, are overweight, or have certain other health conditions You have a first-degree relative with high blood pressure You are Black You had high blood pressure during a If the top number is 130 mm Hg or greater or the bottom number is 80 mm Hg or greater, this is considered stage 1 hypertension. Schedule an appointment with your provider to learn how you can reduce your blood pressure. Watch for blood pressure screenings in your area. Ask your provider if you can stop in to have your blood pressure checked. BREAST CANCER SCREENING Experts do not agree about the benefits of breast self-exams in finding breast cancer or saving lives. Talk to your provider about what is best for you. A screening mammogram is not recommended for most women under age 40. Your provider may discuss and recommend mammograms, MRI scans, or ultrasounds if you have an increased risk for breast cancer, such as: A mother or sister who had breast cancer at a young age (most often starting screening earlier than the age the close relative was diagnosed) You carry a high-risk genetic marker CERVICAL CANCER SCREENING Cervical cancer screening should start at age 21 years unless your provider advises otherwise. After the first test: Women ages 21 through 29 should have a Pap test every 3 years. Exoprts do not agree on whether HPV testing is recommended for this age group. Women ages 30 through 65 should be screened with either a Pap test every 3 years or the HPV test every 5 years or both tests every 5 years (called cotesting ). Women who have been treated for precancer (cervical dysplasia) should continue to have Pap tests for 20 years after treatment or until age 65, whichever is longer. If you have had your uterus and cervix removed (total hysterectomy), and you have not been diagnosed with cervical cancer or precancer (high grade cervical neoplasia), you do not need cervical cancer screening. CHOLESTEROL SCREENING Cholesterol screening should begin at: Age 45 for women with no known risk factors for coronary heart disease Age 20 for women with known risk factors for coronary heart disease Repeat cholesterol screening should take place: Every 5 years for women with normal cholesterol levels More often if changes occur in lifestyle (including weight gain and diet) More often if you have diabetes, heart disease, kidney problems, or certain other conditions DIABETES SCREENING You should be screened for diabetes starting at age 35 and then repeated every 3 years if you have no risk factors for diabetes. Screening may need to start earlier and be repeated more often if you have other risk factors for diabetes, such as: You have a first degree relative with diabetes. You are overweight or have obesity. You have high blood pressure, prediabetes, or a history of heart disease. Screening for diabetes should be done if you are planning to become and you are overweight and have other risk factors such as high blood pressure. DENTAL EXAM Go to the dentist once or twice every year for an exam and cleaning. Your dentist will evaluate if you need more frequent visits. EYE EXAM Have an eye exam every 5 to 10 years before age 40. If you have vision problems, have an eye exam every 2 years or more often if recommended by your provider. You should have an eye exam that includes an examination of your retina (back of your eye) at least every year if you have diabetes. IMMUNIZATIONS Commonly needed vaccines include: Flu shot: get one every year. COVID-19 vaccine: ask your provider what is best for you. Tetanus-diphtheria and acellular pertussis (Tdap) vaccine: have one at or after age 19 as one of your tetanus-diphtheria vaccines if you did not receive it as an adolescent. Tetanus-diphtheria: have a booster (or Tdap) every 10 years. Varicella vaccine: receive 2 doses if you never had chickenpox or the varicella vaccine. Hepatitis B vaccine: receive 2, 3, or 4 doses, depending on your exact circumstances. Measles, mumps, and rubella (MMR) vaccine: receive 1 to 2 doses if you are not already immune to MMR. Your provider can tell you if you are immune. Ask your provider about the human papillomavirus (HPV) vaccine if: You have not received the HPV vaccine in the past You have not completed the full vaccine series (you should catch up on this shot) Ask your provider if you should receive other immunizations if you have certain health problems that increase your risk for some diseases such as pneumonia. INFECTIOUS DISEASE SCREENING Women who are sexually active should be screened for chlamydia and gonorrhea up until age 25. Women 25 years and older should be screened for chlamydia and gonorrhea if at high risk. Screening for hepatitis C: All adults ages 18 to 79 should get a one-time test for hepatitis C. people should be screened at every . Screening for human immunodeficiency virus (HIV): All people ages 15 to 65 should get a one-time test for HIV. Depending on your lifestyle and medical history, you may also need to be screened for infections such as syphilis and HIV, as well as other infections. PHYSICAL EXAM All adults should visit their provider from time to time, even if they are healthy. The purpose of these visits is to: Screen for disease Assess your risk of future medical problems Encourage a healthy lifestyle Update your vaccinations and other preventive care services Maintain a relationship with a provider in case of an illness Your height, weight, and BMI should be checked at every exam. During your exam, your provider may ask you about: Depression and anxiety Diet and exercise Alcohol and tobacco use Safety issues, such as using seat belts, smoke detectors, and intimate partner violence Your medicines and risk for interactions SKIN SELF-EXAM Your provider may check your skin for signs of skin cancer, especially if you're at high risk, such as if you: Have had skin cancer before Have close relatives with skin cancer Have a weakened immune system OTHER SCREENING Talk with your provider about colon cancer screening if you have a strong family history of colon cancer or polyps, or if you have had inflammatory bowel disease or polyps yourself. Routine bone density screening of women under 40 is not recommended.
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
[2025-05-19 13:02] VITALS: BP 118/55; PULSE 77; RESP 16; TEMP 36.8; O2SAT 99; BMI 29.2
--- OUTSIDE RECORDS SUMMARY | 2025-05-19 13:04 | XMS_ITS | Clinical Summary ---
Author Organization [facility] ity Address [address] [place] [address] Care Team Providers Care Delivery Stock Clerk Name Role Phone Unavailable Primary Care Provider Unavailabl e Social History Tobacco Use Types Packs/Day Years Used Date Smoking Tobacco: Never Assessed Comments Unknown Sex and Gender Information Value Date Recorded Sex Assigned at Not on file Legal Sex Female 5:43 PM EST Gender Identity Not on file Sexual Orientation Not on file Plan of Treatment Health Maintenance Due Date Last Done Comments DTaP,Tdap,and Td Vaccines (1 - Tdap) 2017 Hepatitis B Vaccines (1 of 3 - 19+ 3-dose series) 2017 Cervical Cancer Screening: P ap Smear 2019 COVID-19 Vaccine ( - 2023-2 5 season) 2024 Depression Screening 09/23/2024 Influenza Vaccine (#1) 2025 HIB Vaccines Aged Out No longer eligi ble based on patient's age to complete this topic HPV Vaccines Aged Out No longer eligi ble [...] age to complete this topic Meningococcal B Vaccine Aged Out No l onger eligible based on patient's age to complete this topic Pneumococcal Vaccine: Pediat rics (0 to 5 Years) and At-Risk Patients (6 to 49 Years) Aged Out No longer eligible b ased on patient's age to complete this topic RSV Immunization Patients Un anthony 20 months Aged Out No longer eligible b ased on patient's age to complete this topic Varicella Vaccines Aged Out No longer eligible based on patient's age to complete this topic
== END 2025-05-19 13:30 | disposition home or self-care (01) ==
LOC: HO.HMCFM 12:38
PROVIDERS: PCP Nurse Practitioner Family; Visit Provider Nurse Practitioner Family
DX: Z00.00 Encounter for general adult medical examination without abnormal findings (principal); F41.8 Other specified anxiety disorders; H53.8 Other visual disturbances; Y99.1 Military activity; Z76.89 Persons encountering health services in other specified circumstances; Z86.2 Personal history of diseases of the blood and blood-forming organs and certain disorders involving the immune mechanism; O99.345 Other mental disorders complicating the puerperium

== ENCOUNTER 2025-05-21 08:24 | Outpatient (AMB) | payer OTHER, SELFPAY ==
--- NOTE | 2025-05-21 08:35 | A.OFFPC_ITS ---
Intake Visit Reasons: lab review Intake Note: [place] presents for a telehealth appointment to go over her lab results. Allergies Seasonal Allergies Allergy (Verified 05/21/25 16:46) Itchy Eyes Medication List - Last Reconciled 05/21/25 by HANNAH Can No Known Home Meds Tobacco use date assessed: 05/21/25 Dental Screening Dental Screen Date: 05/21/25 Did you have a dental visit in the last 12 months?: Yes Did you have a dental problem in the last 6 months where you did not have access to dental care?: No Was dental information given to patient?: Patient has dentist HPI HPI Comments History of Present Illness Details 25 y/o F with Iron def anemia, hemorrhoi ds, 4 months 05/26 Surgery: wisdom teeth , perineal repair s/p childbirth Social: Dtr (January 2025) Sig Other, Fhx: Mom and Dad alive and well; 3 brothers; 6 sisters all alive and well. Denies cancer, CVD in grandparents. One grandparent w/ Alzheimers Health Maintenance Tdap 2024 Pap 2023 Specialist: Miguel Rivers History of Present Illness - The patient is a 25-year-old female pr esenting to review labs. - Labs c/w thyroiditis. - Symptoms of chest palpitations and an xiety present - Labs also show Vit D def, Otherwise no rmal. Results See below Assessment and Plan 1. Thyroiditis - Plan includes metoprolol 12.5 mg po QD , safe for breast feeding to help anxiety and palpitations. We will repeat labs q 6 weeks for the first year (end 01/2026). Check TPO AB. - Edu on risk for hypothyroid and need f or lifelong medication. - Make ObGyn aware of dx. - Ok to repeat labs at our [facility] location, [address] [place] [address]. 2. Vitamin D Deficiency - Daily vitamin D supplement recommended , 1000mcg QD. Patient was given time to ask questions. All questions were answered to their satisfaction. Telehealth Attestation The documentation accurately reflects the telehealth visit conducted via phone consultation. The patient has been explained that this is an interactive (audio/video) telehealth encounter and what that consists of. The patient understands and wishes to proceed. Cigital platform was used. Total time spent caring for the patient today was 21 minutes. This includes time spent before the visit reviewing the chart, time spent during the visit, and time spent after the visit on documentation, reviewing laboratory results, diagnostic imaging, medications, performing a medically necessary evaluation, counseling on diagnoses, care coordination, ordering appropriate tests, ordering appropriate medications, review of tests performed by other providers, reporting test results with the patient, communication with other healthcare providers. 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 Lopez Sanches, Elvira Jackson, Jeremy Morales and colleagues, with an educational emma from [facility]. Physical exam (Primary Care) Tobacco/Smoking Status: Tobacco use Status Tobacco use date assessed 05/21/25 05/21/25 16:11 Patient Tobacco Use Status Never used Tobacco 05/21/25 16:09 e-Cigarette/Vaping Use Currently Using 05/21/25 16:09 Thrive Assessment: Date of Thrive Assessment Date Thrive assessed 05/19/25 05/21/25 08:37 Telehealth Telehealth Telehealth Platform: [facility] Location of provider rendering services: practice address Location of patient: address on file Patient Identification confirmed using: Name, : Yes Telehealth method: voice only Patient verbally consented to treatment: Yes Patient verbally consented to billing insurance company: Yes Patient informed of any privacy concerns related to visit: Yes Minutes spent on Phone/Video with Pt.: 10 Results Reviewed Results Reviewed: Laboratory 05/19/25 Result Units Range Interpretation Provider Comments White Blood Count 6.3 X10*3/uL (4.8-10.8) Red Blood Count 4.88 X10*6/uL (4.20-5.50) Hemoglobin 13.4 g/dl (12.0-16.0) Hematocrit 40.0 % (37.0-47.0) Mean Corpuscular Volume 82.0 fL (80.0-98.0) Mean Corpuscular Hemoglobin 27.5 pg (27.0-33.0) Mean Corpuscular Hemoglobin Concent 33.5 g/dl (31.0-35.0) Red Cell Distribution Width 12.7 % (11.0-16.0) Platelet Count 289 X10*3/uL (160-400) Mean Platelet Volume 10.5 fL (9.4-12.3) Nucleated RBC Absolute Count (auto) 0.000 X10*3/uL (0.0-0.012) Nucleated Red Blood Cells % (auto) 0.0 /100WBC (0.0-0.2) Sodium Level 137 mmol/L (135-145) Potassium Level 4.0 mmol/L (3.3-5.1) Chloride Level 104 mmol/L (96-108) Carbon Dioxide Level 25 mmol/L (22-29) Anion Gap 12 (12-20) Blood Urea Nitrogen 10 mg/dL (9-16) Creatinine 0.63 mg/dL (0.5-1.4) Estimated Creatinine Clearance Calc Not Reportable Estimat Glomerular Filtration Rate > 60 Random Glucose 98 mg/dL (60-115) Estimated Average Glucose 103 mg/dL Hemoglobin A1c Percent 5.2 % (<6.0) Calcium Level 9.3 mg/dL (8.4-10.2) Total Bilirubin 0.6 mg/dL (0.0-1.0) Aspartate Amino Transf (AST/SGOT) 21 U/L (5-31) Alanine Aminotransferase (ALT/SGPT) 31 U/L (0-31) Alkaline Phosphatase 89 U/L (39-117) Total Protein 7.3 g/dL (6.5-8.0) Albumin 4.6 g/dL (3.5-5.0) Triglycerides Level 170 mg/dL (<150) High Cholesterol Level 201 mg/dL (<200) High LDL Cholesterol, Calculated 106 mg/dL (<100) High HDL Cholesterol 61 mg/dL (>40) Vitamin B12 Level 302 pg/mL (200-900) 25-Hydroxy Vitamin D Total 26.5 ng/mL (>30) Low Folate 11.4 ng/mL (> or = 4.0) Thyroid Stimulating Hormone (TSH) 0.02 uIU/mL (0.32-4.0) Low Free Thyroxine 1.02 ng/dL (0.71-1.85) Urine Creatinine 146.03 mg/dL Urine Microalbumin 20.0 mg/L Urine Microalbumin/Creatinine Ratio 13.6 ug/mg cr (<30) Coding Level of Care Code Tele Est Pt Level 3 (31294) Complex EM visit Add On G2211 Diagnoses Encounter to discuss test results Z71.2 Low TSH level R79.89 Vitamin D deficiency E55.9 thyroiditis O90.5 Assessment & Plan Assessment & Plan (1) Encounter to discuss test results: Code(s): Z71.2 - Person consulting for explanation of examination or test findings (2) Low TSH level: Code(s): R79.89 - Other specified abnormal findings of blood chemistry Category: Medical (3) Vitamin D deficiency: Code(s): E55.9 - Vitamin D deficiency, unspecified Category: Medical (4) thyroiditis: Onset Date: ~05/21/25 Comment: baby born 01/23/2027 Code(s): O90.5 - thyroiditis Category: Medical Plan . Orders: Orders Thyroid Peroxidase Antibodies 6 Weeks O90.5 - thyroiditis, R79.89 - Other specified abnormal findings of blood chemistry TSH reflex Free T4 6 Weeks O90.5 - thyroiditis, R79.89 - Other specified abnormal findings of blood chemistry Medications: New metoprolol tartrate 12.5 mg (1/2 x 25 mg) PO DAILY 45 tabs 0RF cholecalciferol (vitamin D3) 25 mcg PO DAILY 90 caps 0RF
--- OUTSIDE RECORDS SUMMARY | 2025-05-21 09:09 | XMS_ITS | Continuity of Care Document ---
Author Name [facility] Organization [facility] Care Team Providers Care Zoology Teacher Name Role Phone [facility] Unavailable Unavailable Problems [...] 12/26/2022 Condition DoD ASSESSMENT, POST-DEPLOYMENT, DOCUMENTED ON [id number] Inactive 12/26/2022 Condition DoD Acute pharyngitis, unspecified [...] Known Allergies Drug allergy (disorder) active 01/14/2019 [facility] [place] [address] Immunizations Combined list of available immunizations from the Department of Defense and Veterans Affairs facilities. Immunization Series Date Given Administered By Site Reaction Lot Number CVX Code Drug Oxyacetylene Cutter Status Comments Source influenza, injectable, quadrivalent 2020 [id number] GlaxoSmithKli ne complet ed influenza , injectabl e, quadrival ent 07/28/21 Given Ambulat ory Pharmac y influenza, injectable, quadrivalent, contains preservative 1 2020 [id number] 158 SmithKline (SKB) complet ed influenza , injectabl e, quadrival ent, contains preservat melecio DoD COVID Vaccine Moderna 2020 [id number] complet ed COVID Vaccine Moderna 12/13/20 Given Ambulat ory Pharmac y SARS-COV-2 (COVID-19) vaccine, mRNA, spike protein, LNP, preservative free, 100 mcg or 50 mcg dose 2 2020 [id number] 207 Moderna SIGFOX, Inc. (MOD) complet ed SARS-COV- 2 (COVID-19 ) vaccine, mRNA, spike protein, LNP, preservat melecio free, 100 mcg or 50 mcg dose DoD COVID Vaccine Moderna 2020 [id number] complet ed COVID Vaccine Moderna 10/28/20 Given Ambulat ory Pharmac y SARS-COV-2 (COVID-19) vaccine, mRNA, spike protein, LNP, preservative free, 100 mcg or 50 mcg dose 1 2020 [id number] 207 Moderna SIGFOX, Inc. (MOD) complet ed SARS-COV- 2 (COVID-19 ) vaccine, mRNA, spike protein, LNP, preservat melecio free, 100 mcg or 50 mcg dose DoD influenza virus vaccine, inactivated 2019 [id number] Seqirus complet ed influenza virus vaccine, inactivat ed 07/26/20 Given Ambulat ory Pharmac y Influenza, injectable, Madin Tess Canine Kidney, quadrivalent with preservative 1 2019 [id number] Seqirus (SEQ) comple t ed Influenza [...] , CpG adjuvanted 3 2018 [id number] [employer]. (DVX) complet ed Hepatitis B vaccine (recombin ant), CpG adjuvante d DoD influenza, injectable, quadrivalent- pf 2018 [id number] 150 Seqirus complet ed influenza , injectabl e, quadrival ent-pf 06/30/19 Given Ambulat ory Pharmac y Influenza, injectable, quadrivalent, preservative free 2 2018 [id number] 150 Seqirus (SEQ) complet ed Influenza , injectabl e, quadrival ent, preservat melecio free DoD varicella virus vaccine 2018 [id number] Merck & Company Inc complet ed varicella virus vaccine 03/02/19 Given Ambulat ory Pharmac y hepatitis A-hepatitis B vaccine 2018 [id number] 104 GlaxoSmithKli ne complet ed hepatitis A-hepatit is B vaccine 03/02/19 Given Ambulat ory Pharmac y varicella virus vaccine 1 2018 [id number] 21 Merck (MSD) complet ed varicella virus vaccine DoD hepatitis A and hepatitis B vaccine 1 2018 [id number] 104 SmithKline (SKB) complet ed hepatitis A and hepatitis B vaccine DoD hepatitis A-hepatitis B vaccine 2018 [id number] 104 GlaxoSmithKli ne complet ed hepatitis A-hepatit is B vaccine 01/14/19 Given Ambulat ory Pharmac y adenovirus vaccine, live 2018 [id number] 143 Teva Hachi [employer] complet ed adenoviru s vaccine, live 01/14/19 Given Ambulat ory Pharmac y varicella virus vaccine 2018 [id number] 21 Merck & Company Inc complet ed varicella virus vaccine 01/14/19 Given Ambulat ory Pharmac y varicella virus vaccine 1 2018 [id number] 21 Merck (MSD) complet ed varicella virus vaccine DoD hepatitis A and hepatitis B vaccine 1 2018 [id number] 104 SmithKline (SKB) complet ed hepatitis A and hepatitis B vaccine DoD Adenovirus, type 4 and type 7, live, oral 1 2018 [id number] 2 143 [facility] ([facility]) complet ed Adenoviru s, type 4 and type 7, live, oral DoD tetanus, diphtheria, acellular pertu is 2018 [id number] 115 GlaxoSmithKli ne complet ed tetanus, diphtheri a, acellular pertussis 01/08/19 Given Ambulat ory Pharmac y poliovirus vaccine, inactivated 2018 [id number] 10 sanofi pasteur complet ed polioviru s vaccine, inactivat ed 01/08/19 Given Ambulat ory Pharmac y influenza, injectable, quadrivalent- pf 2018 [id number] 150 GlaxoSmithKli ne complet ed influenza , injectabl e, quadrival ent-pf 01/08/19 Given Ambulat ory Pharmac y meningococcal A,C,Y,W-135 (MCV4P) 2018 [id number] 114 sanofi pasteur complet ed meningoco ccal A,C,Y,W-1 35 (MCV4P) 01/08/19 Given Ambulat ory Pharmac y poliovirus vaccine, inactivated 1 2018 [id number] 10 Sanofi Pasteur (PMC) complet ed polioviru s vaccine, inactivat ed DoD meningococcal polysaccharid e (groups A, C, Y and W-135) diphtheria toxoid conjugate vaccine (MCV4P) 1 2018 [id number] 114 Sanofi Pasteur (PMC) complet ed meningoco ccal polysacch aride (groups A, C, Y and W-135) diphtheri a toxoid conjugate vaccine (MCV4P) DoD tetanus toxoid, reduced diphtheria toxoid, and acellular pertu is vaccine, adsorbed 1 2018 [id number] 115 [facility] ([facility]) complet ed tetanus toxoid, reduced diphtheri a toxoid, and acellular pertussis vaccine, adsorbed DoD Influenza, injectable, quadrivalent, preservative free 1 2018 [id number] 150 [facility] Influenza , injectabl e, [...] Prevention' s HIV diagnostic algorithm. Refer to [facility] Lab Guide for additional information : [email or web address] [email or web address]/ [email or web address] x Testing performed by Christopher anderson. [employer] EPILAB Miscellan eous Sendouts Repository Sample Received (11/20/24 8:00 AM) 11/20 N [employer] EPILAB Encounters Combined list of: 1) Encounters from Department of Veterans Affairs facilities going backup to the last 18 months, not all VA inpatient encounters are included; 2) Encounters from the Department of Defense facilities going backup to 280 months. Location Location Details Encounter Type Encounter Number Reason For Visit Attending Provider ADM Date DC Date Status Disposition Source [place] [place] [address] [id number] Notes Entered by: Albaro BERKOWITZ 14 Jan 2019 0902 ------- ------- ------- ------- -- Strep Prophyl axsis SCOOBY GE 01/14 Released w/o Limitations [facility] [place] [address] [place] [address]([facility]) OUTPATIENT [id number] RADHA MOORE 01/15 [facility]itations [facility] [place] [address](O ptometr y Clinic BMT [facility]) [place] [address](Hea ring Conservat ion, BMT) OUTPATIENT [id number] RICHARD HUYNH Antonella 01/15 Released w/o Limitations [facility] [place] [address]([facility] earing Conserv ation, BMT) [place] [address](Oph thalmolog y, [facility]) OUTPATIENT [id number] blurry vision HAI FERNÁNDEZ 04/24 Released w/o Limitations [facility] [place] [address](O phthalm ology, [facility]) [place] [address]([facility]) OUTPATIENT [id number] Notes Entered by: BUSHRA VASQUEZ 30 Apr 2019 0633 ------- ------- ------- ------- -- Control CRISTIAN MCPHERSON 04/30 Released w/o Limitations [facility] [place] [address]([facility] d) [place] [address](AFN G 104 Med Sq-FM) OUTPATIENT [id number] Notes Entered by: FRANCO BAUTISTA 05 Aug 2019 1546 ------- ------- ------- ------- -- FRANCO PLUNKETT 08/05 Released w/o Limitations [facility] [place] [address](A FNG 104 Med Sq-FM) [place] [address](AFN G 104 Med Sq-FM) OUTPATIENT [id number] Notes Entered by: FRANCO BAUTISTA 19 Mar 2020 1415 ------- ------- ------- ------- -- PURNIMA 1 FRANCO BAUTISTA RILEY 03/19 [facility] [place] [address](A FNG 104 Med Sq-FM) [place] [address](AFN G 104 Med Sq-FM) OUTPATIENT [id number] Notes Entered by: LILYFRANCO RILEY 07 Apr 2020 0833 ------- ------- ------- ------- -- GORDON FRANCO BAUTISTA RILEY 04/07 [facility] Limitations [facility] [place] [address](A FNG 104 Med Sq-FM) [place] [address](AFN G 104 Med Sq-FM) OUTPATIENT [id number] Notes Entered by: LILYFRANCO RILEY 08 Jun 2020 1530 ------- ------- ------- ------- -- PURNIMA2/S HPE FRANCO BAUTISTA RILEY 06/08 [facility] w/o Limitations [facility] [place] [address](A FNG 104 Med Sq-FM) [place] [address](AFN G 104 Med Sq-FM) OUTPATIENT [id number] Notes Entered by: JARRETT CAVAZOS 30 Nov 2020 1355 ------- ------- ------- ------- -- Audio only LILYFRANCO SALVADOR RILEY 11/30 Released w/o Limitations [facility] [place] [address](A FNG 104 Med Sq-FM) [place] [address](AFN G 104 Med Sq-FM) OUTPATIENT [id number] Notes Entered by: CHYNA RUIZ 02 Dec 2020 1019 ------- ------- ------- ------- -- RAMONITA SAGASTUME 12/02 Released w/o Limitations [facility] [place] [address](A FNG 104 Med Sq-FM) [place] [address](AFN G 104 Med Sq-FM) OUTPATIENT [id number] Notes Entered by: CHYNA RUIZ R 27 Nov 2021 1319 ------- ------- ------- ------- -- [facility] RAMONITA RUIZ 11/27 Released w/o Limitations [facility] [place] [address](A FNG 104 Med Sq-FM) [place] [address](AFN G 104 Med Sq-FM) OUTPATIENT [id number] Notes Entered by: EMILY LEOS 27 Nov 2021 1321 ------- ------- ------- ------- -- Annual Audiogr am RAMONITA RUIZ R 11/27 Released w/o Limitations [facility] [place] [address](A FNG 104 Med Sq-FM) [place] [address](AFN G 104 Med Sq-FM) OUTPATIENT [id number] Notes Entered by: ZEINAB BLEDSOE 14 Dec 2021 1345 ------- ------- ------- ------- -- GORGE LOVE 12/14 Released w/o Limitations [facility] [place] [address](A FNG 104 Med Sq-FM) [facility] OUTPATIENT [id number] Theater Provider 07/23 Released w/o Limitations [facility] OUTPATIENT [id number] Theater Provider 08/23 Released w/o Limitations [facility] OUTPATIENT [id number] Theater Provider 10/02 Released w/o Limitations [facility] OUTPATIENT [id number] Theater Provider 10/10 Released w/o Limitations [facility] OUTPATIENT [id number] Theater Provider 10/19 Released w/o Limitations [facility] OUTPATIENT [id number] Theater Provider 11/30 Released w/o Limitations [facility] OUTPATIENT [id number] Theater Provider 12/26 Released w/o Limitations [facility] 8203R-104 MDG Care Not Rendered [id number] 08/30 Discharge Disposition: Home or Self Care 8203R-1 04 MDG 8203R-104 MDG Care Not Rendered [id number] 11/20 Discharge Disposition: Home or Self Care 8203R-1 04 MDG 8203R-104 MDG Outpatient [id number] DUTCH REBOLLAR 11/21 Discharge Disposition: Home or Self Care 8203R-1 04 MDG zzJoint Umbrella Org Between Visit 12/27 Discharge Disposition: Home or Self Care zzJoint Umbrell a Org 8203R-104 MDG Care Not Rendered [id number] 02/17 Discharge Disposition: Home or Self Care 8203R-1 04 MDG Procedures Combined list of: 1) Procedures from Department of Veterans Affairs facilities [facility], not all VA non-surgical procedures are included; 2) All procedures from the Department of Defense facilities. Procedure Procedure Type Code Date Perfomer Comments Sourc e No data available for this section Ambulato ry Pharmacy Ophthalmological New Patient Start Comprehensive Care Ophthalmological New Patient Start Comprehensive Care 69549 023 Theater Provider DoD Determination Of Refractive State Determination Of Refractive State 08802 023 Theater Provider DoD Ophthalmological Prior Patient Start Comprehensive Care Ophthalmological Prior Patient Start Comprehensive Care 89910 019 HAI FERNÁNDEZ Threshold Audiogram (Pure Tone) Threshold Audiogram (Pure Tone) 39061 019 RICHARD HUYNH DoD Spectacles Services Fitting Monofocals (Not For Aphakia) Spectacles Services Fitting Monofocals (Not For Aphakia) 18747 REMA PIÑA [facility] Screening Test Of Visual Acuity, Quantitative, Bilateral Screening Test Of Visual Acuity, Quantitative, Bilateral [address] Supervised Injection Intramuscular Supervised Injection Intramuscular 38970 FERDINAND BERKOWITZ [facility] OPHTHALMOLOGICAL SERVICES: MEDICAL EXAMINATION AND EVALUATION, WITH INITIATION OR CONTINUATION OF DIAGNOSTIC AND TREATMENT PROGRAM; COMPREHENSIVE, ESTABLISHED PATIENT, 1 OR MORE VISITS [facility] PURE TONE AUDIOMETRY (THRESHOLD); AIR ONLY [facility] FITTING OF SPECTACLES, EXCEPT FOR APHAKIA; MONOFOCAL [facility] THERAPEUTIC, PROPHYLACTIC, OR DIAGNOSTIC INJECTION (SPECIFY SUBSTANCE OR DRUG); SUBCUTANEOUS OR INTRAMUSCULAR [facility] Social History Combined list of available smoking, tobacco, and other social history from Department of Defense and Veterans Affairs facilities. Social History Type Response Date Comment Sour e Sex Representation Female (finding) 12/28/2021 Unknown Organization Sexual Orientation Ambula tory Pharmacy Gender identity Ambulator y Pharmacy This section is an empty social history section. [facility] Assessment and Plan Combined list of future care activities from Department of Defense and Veterans Affairs facilities (e.g., assessment and plan notes, appointments, orders, and referrals). Additional future care activities may be listed in the Plan of Care section. Result Assessment and Plan Date Source Assessment and Plan No data available for this section 05/21/2025 Ambulatory Pharmacy Functional Status Combined list of recent functional and cognitive assessments recorded at Department of Defense and Veterans Affairs (VA).VA Functional [place] Measurement (FIM) Scale: 1 = Total Assistance (Subject = 0% +), 2 = Maximal Assistance (Subject = 25% +), 3 = Moderate Assistance (Subject = 50% +), 4 = Minimal Assistance (Subject = 75% +), 5 = Supervision, 6 = Modified [place] (Device), 7 = Complete [place] (Timely, Safely). Assessment Date/Time Source Assessment Type Assessment Skill Assessment Score Assessment Details No data available for this section
--- OUTSIDE RECORDS SUMMARY | 2025-05-21 09:09 | XMS_ITS | Clinical Summary ---
Author Organization [facility]na [facility] ity Address [address] [place] [address] Care Team Providers Care Director Of Student Financial Aid Name Role Phone Unavailable Primary Care Provider [...]
== END 2025-05-21 16:59 | disposition home or self-care (01) ==
LOC: HO.HMCFM 08:24
PROVIDERS: PCP Nurse Practitioner Family; Visit Provider Nurse Practitioner Family
DX: Z71.2 Person consulting for explanation of examination or test findings (principal); R79.89 Other specified abnormal findings of blood chemistry; E55.9 Vitamin D deficiency, unspecified; O90.5 Postpartum thyroiditis

== ENCOUNTER 2025-09-22 13:25 | Outpatient (AMB) | payer OTHER, SELFPAY ==
--- NOTE | 2025-09-22 13:27 | MHC.PC.OV ---
Vital Signs 09/22/25 13:31 Height 5 ft 3.5 in Weight 167 lb BMI 29.1 BP 114/60 Blood Pressure Location Lt brachial Position Sitting Respiration 16 Pulse 97 Pulse Source Pulse Oximeter Temp 97.8 F Temp Source Oral Pulse Oximetry (%) 96 Oxygen Delivery Method Room Air Intake Visit Reasons: hemorrhoids / Referral Intake Note: patient here for c/o hemorrhoids and would like a referral Spark Plug Tester Required: No Is last menstrual period known: Yes (on depo) Last menstrual period: 07/31/25 Post menopausal: No Patient : No Allergies Seasonal Allergies Allergy (Verified 09/22/25 13:59) Itchy Eyes Medication List - Last Reconciled 09/22/25 by Amy Pena, EMERGENCY MEDICAL TECHNICIAN/DRIVER-BC hydrocortisone acetate (Anusol-HC) 25 mg RI BEDTIME ibuprofen 600 mg PO Q8H PRN 7 days medroxyprogesterone (Depo-Provera) 150 mg IM [id number] metronidazole 500 mg PO Q12H miconazole nitrate 2% 1 appl vaginal BEDTIME Tobacco use date assessed: 09/22/25 Dental Screening Dental Screen Date: 09/22/25 Did you have a dental visit in the last 12 months?: Yes Did you have a dental problem in the last 6 months where you did not have access to dental care?: No Was dental information given to patient?: Patient has dentist HPI HPI Comments History of Present Illness Details 25 y/o F with Iron def anemia, hemorrhoids, Surgery: wisdom teeth , perineal repair s/p childbirth Social: Dtr (January 2025) Sig Other, Fhx: Mom and Dad alive and well; 3 brothers; 6 sisters all alive and well. Denies cancer, CVD in grandparents. One grandparent w/ Alzheimers Health Maintenance Tdap 2024 Pap 2023 Flu season Specialist: Miguel Rivers History of Present Illness The patient is a 25 year old female presenting for evaluation and management of hemorrhoids and abnormal uterine bleeding. Hemorrhoids: - The patient reports multiple external hemorrhoids that bother her intermittently, with one specific hemorrhoid that becomes inflamed. - She reports occasional constipation. - The hemorrhoids rarely hurt during bowel movements but can cause pain and irritation upon wiping. - She previously sought care at a [facility] where she was advised to see her primary care provider for a referral. - Prior treatment includes gfrs-[id number] hemorrhoid cream. - She is not currently . Abnormal Uterine Bleeding: - The patient received a Depo-Provera injection for contraception on August 16. - She has experienced continuous, light vaginal bleeding every day, which started about a week after the injection. - She has a history of using Depo-Provera, and it previously resulted in amenorrhea. - She believes the current bleeding is due to her hormones being out of whack after having a baby. - The Depo-Provera was administered at [facility] Thyroiditis: - The patient has a history of thyroiditis from over the summer and is overdue for repeat labs. Referral for Behavioral Health Services: - The patient was referred to a therapist months ago but was placed on a waiting list and has not yet received an appointment. Past Medical History - thyroiditis - History of Depo-Provera use for contraception - Recent childbirth - Influenza vaccine administered Review of Systems - Constitutional: Reports fatigue. - Gastrointestinal: Reports multiple external hemorrhoids, with one that becomes inflamed intermittently. Reports occasional constipation. Denies pain with defecation but reports irritation when wiping. - Genitourinary: Reports continuous, light vaginal bleeding since receiving a Depo-Provera injection in July. - Psychiatric: Acknowledges need for therapy and delay in accessing care. Physical Exam General: Well developed, well nourished, in no acute distress. Appears stated age. Head: Normocephalic, atraumatic. Eyes: Pupils are equal, round and reactive to light and accommodation. Conjunctivae are clear. Vision grossly normal. Lungs: Speaking in full sentences : exam deferred Psych: Mood and affect appropriate. Medical Decision Making The patient is a 25-year-old female presenting with symptomatic external hemorrhoids and abnormal uterine bleeding secondary to her recent Depo-Provera injection. For the hemorrhoids, which the patient notes are external and intermittently inflamed, treatment will be initiated to address both internal and external components, as they originate internally. This includes high-dose ibuprofen for its anti-inflammatory effects and a hydrocortisone suppository to shrink the hemorrhoids. A referral to colorectal surgery is also warranted for specialist evaluation and management. Regarding the abnormal uterine bleeding, the patient has experienced continuous, light bleeding since her Depo-Provera shot on August 16. A medication to stop the bleeding was considered but found to be contraindicated. Therefore, the plan is to start an oral contraceptive pill, Alyacen, to regulate her cycle and provide continuous contraception as the Depo-Provera wears off. The Depo-Provera will be discontinued. Additionally, the patient is due for follow-up labs for her history of thyroiditis, and an order will be placed for bloodwork today. Finally, due to a significant delay in accessing mental health services from a prior referral, a new referral will be placed for therapy, with our community health worker to assist in scheduling. A follow-up visit is scheduled in four months to assess the efficacy of the new control regimen. Plan 1. Hemorrhoids - Prescribed ibuprofen 600 mg to be taken orally three times a day with food for one week. - Prescribed hydrocortisone suppositories to be inserted rectally at bedtime as needed for up to 12 days, based on symptoms. - Placed a referral to Dr. Jiménez in colorectal surgery for specialist evaluation. HEMORRHOIDS OVERVIEW Hemorrhoids are enlarged or swollen veins in the lower rectum. The most common symptoms of hemorrhoids are rectal bleeding, itching, and pain. You may be able to see or feel hemorrhoids around the outside of the anus, or they may be hidden from view, inside the rectum (figure 1A-B). Hemorrhoids are common, occurring in both men and women. Although hemorrhoids do not usually cause serious health problems, they can be annoying and uncomfortable. Fortunately, treatments for hemorrhoids are available and can usually minimize the bothersome symptoms. More detailed information about hemorrhoids is available by subscription. (See Hemorrhoids: Clinical manifestations and diagnosis and Home and office treatment of symptomatic hemorrhoids .) HEMORRHOID SYMPTOMS Hemorrhoids are more common in people who are older and in those who have diarrhea or pelvic tumors, during or after , and in people who sit for prolonged periods of time and/or strain (push hard) to have a bowel movement. Symptoms of hemorrhoids can include the following: ?Painless rectal bleeding ?Anal itching or pain ?Tissue bulging around the anus ?Leakage of feces or difficulty cleaning after a bowel movement Rectal bleeding ? Many people with hemorrhoids notice bright red blood on the stool, in the toilet, or on the toilet tissue after a bowel movement. The amount of blood is usually small. However, even a small amount of blood in the toilet bowl can cause the water to appear bright red, which can be frightening. Less commonly, bleeding can be heavy. While hemorrhoids are one of the most common reasons for rectal bleeding, there are other, more serious causes. It is not possible to know what is causing rectal bleeding unless you are examined. If you see bleeding after a bowel movement, call your health care provider. (See Patient education: Blood in the stool (rectal bleeding) in adults (Beyond the Basics) .) Itching ? Hemorrhoids commonly cause itching and irritation of skin around the anus. Pain ? Hemorrhoids can become painful. If you develop severe pain, call your health care provider immediately because this may be a sign of a serious problem. HEMORRHOID DIAGNOSIS To diagnose hemorrhoids, your clinician will examine your rectum and anus and may insert a gloved finger into the rectum. If there is bleeding, testing should include a procedure that allows your health care provider to look inside the anus (called anoscopy) or colon (sigmoidoscopy or colonoscopy). (See Patient education: Flexible sigmoidoscopy (Beyond the Basics) .) INITIAL HEMORRHOID TREATMENT There are measures you can take at home to relieve hemorrhoid symptoms (table 1). One of the most important steps in treating hemorrhoids is avoiding constipation (hard or infrequent stools). Hard stools can lead to rectal bleeding and/or a tear in the anus, called an anal fissure. In addition, pushing and straining to move your bowels can worsen existing hemorrhoids and increase the risk of developing new hemorrhoids. (See Patient education: Anal fissure (Beyond the Basics) .) Fiber supplements ? Increasing fiber in your diet is one of the best ways to soften your stools. Fiber is found in fruits and vegetables. The recommended amount of dietary fiber is 20 to 35 grams per day (table 2). (See Patient education: High-fiber diet (Beyond the Basics) .) Several fiber supplements are available, including psyllium (sample brand names: Konsyl, Metamucil), methylcellulose (sample brand name: Citrucel), polycarbophil (sample brand name: FiberCon), and wheat dextrin (Benefiber). Start with a small amount and increase slowly to avoid side effects. Laxatives ? If increasing fiber does not relieve your constipation, or if side effects of fiber are intolerable, you can try a laxative. Many people worry about taking laxatives regularly, fearing that they will not be able to have a bowel movement if the laxative is stopped. Laxatives are not addictive, and using laxatives does not increase your risk of constipation in the future. Instead, using a laxative may actually prevent long-term problems with constipation. (See Patient education: Constipation in adults (Beyond the Basics) .) Warm sitz baths ? During a sitz bath, you soak the rectal area in warm water for 10 to 15 minutes two to three times daily. Sitz baths are available in most drugstores. It is also possible to use a bathtub and sit in 2 to 3 inches of warm water. Do not add soap, bubble bath, or other additives in the water. Sitz baths work by improving blood flow and relaxing the muscle around the anus, called the internal anal sphincter. Topical treatments ? Various creams and suppositories are available to treat hemorrhoids, and many are available without a prescription. Pain-relieving creams and hydrocortisone rectal suppositories may help relieve pain, inflammation, and itching, at least temporarily. You should not use hemorrhoid creams and suppositories, particularly hydrocortisone, for longer than one week, unless your health care provider approves. MINIMALLY INVASIVE TREATMENT If you have bothersome hemorrhoids after using conservative measures, you may want to consider a minimally invasive procedure. Most procedures are performed as a day surgery. The following procedures are intended for treatment of internal hemorrhoids. Rubber band ligation ? Rubber band ligation is the most widely used procedure. It relieves symptoms in the majority of patients. Rubber bands or rings are placed around the base of an internal hemorrhoid. As the blood supply is restricted, the hemorrhoid shrinks and degenerates over several days. Many patients report a sense of tightness after the procedure, which may improve with warm sitz baths. Patients are encouraged to use fiber supplements to avoid constipation. Delayed bleeding may occur when the rubber band falls off, usually two to four days after the procedure. In some cases, a raw and sore area develops five to seven days following the procedure. Other less common complications of rubber band ligation include severe pain, thrombosis of other hemorrhoids, and localized infection or pus formation (abscess). Rubber band ligation rarely causes serious complications. Laser, infrared, or bipolar coagulation ? These methods involve the use of laser or infrared light or heat to destroy internal hemorrhoids. Sclerotherapy ? During sclerotherapy, a chemical solution is injected into hemorrhoidal tissue, causing the tissue to break down and form a scar. Sclerotherapy may be less effective than rubber band ligation. HEMORRHOID SURGERY If you continue to have symptoms from hemorrhoids (such as bleeding, pain, or prolapse) despite medical therapies or office-based procedures, you may require surgery. Options for surgical treatment for hemorrhoids include hemorrhoidectomy (surgically removing excess hemorrhoidal tissues), which works for both internal and external hemorrhoids, and other procedures (eg, stapled hemorrhoidopexy and hemorrhoidal arterial ligation), which only work for internal hemorrhoids. If you need surgery, your doctor can help you figure out which procedure is best for you. 2. Abnormal Uterine Bleeding / Contraception Management - Discontinued Depo-Provera due to persistent bleeding since the last injection in July. - Prescribed Alyacen, an oral contraceptive pill, to regulate bleeding and provide ongoing control. - The prescription for Alyacen includes one year of refills. - Advised patient to schedule a follow-up appointment in four months to evaluate the new contraception method. 3. Thyroiditis - Ordered repeat labs for thyroid function to be drawn today. - Will communicate lab results to the patient via the online portal. 4. Referral For Behavioral Health Services - Acknowledged patient's previous difficulty with a therapy referral, which resulted in being placed on a waiting list months ago without follow-up. - A new referral order for therapy will be placed. - The clinic's CHW specialist, Trevor, will contact the patient next week to assist with scheduling an appointment. Patient Instructions - Take ibuprofen 600 mg by mouth three times a day with food for one week to help with the hemorrhoids. - Insert one suppository into your rectum at bedtime. You can use them for up to 12 days, but you may stop sooner if your symptoms improve. - We are stopping the Depo shot and starting you on a control pill called Alyacen. I have sent a prescription for one year to your pharmacy. - Please stop at the lab before you leave today to have blood drawn to check your thyroid levels. - We have put in a referral for you to see the hemorrhoid specialist, Dr. Jiménez. His office will call you to schedule. - We have also put in a new referral for you to see a therapist. Our team will call you next week to help set up an appointment. - Schedule a follow-up appointment with me in four months at the [facility]. - Your prescriptions have been sent to the [facility] on [address] in [place]. Consent Patient was informed and verbally consented to the use of an ambient scribe for clinic note documentation during this visit. Total time spent caring for the patient today was 30 minutes. This includes time spent before the visit reviewing the chart, time spent during the visit, and time spent after the visit on documentation, reviewing laboratory results, diagnostic imaging, medications, performing a medically necessary evaluation, counseling on diagnoses, care coordination, ordering appropriate tests, ordering appropriate medications, review of tests performed by other providers, reporting test results with the patient, communication with other healthcare providers. [facility] Medical History (Updated 09/22/25 @ 14:58 by Amy Pena, [facility]) Hemorrhoids History of Papanicolaou smear of cervix (~2023) Family History Mother Asthma Social History (Updated 05/21/25 @ 16:10 by Chantal Marin MA) Housing: Apartment Alcohol intake: current Patient Tobacco Use Status: Never used Tobacco e-Cigarette/Vaping Use: Currently Using Second Hand Smoke Exposure: No service: Yes Current occupational status: employed Current occupation: [employer] Current occupational exposures/hazards: No Cognitive needs: No Hearing needs: No Vision needs: No Female Reproductive History Menstrual Date of last menstrual period: 07/31/25 Questionnaire Thrive Questionnaire Date Thrive assessed: 05/19/25 I am a: Patient What is your living situation today?: I have a steady place to live Within the past 12 months, did the food you bought not last and you didn't have the money to get more?: Never true Within the past 12 months, did you worry whether your food would run out before you got money to buy more?: Never true Do you have trouble paying for medicines?: No Do you have trouble getting transportation to medical appointments?: No Do you have trouble paying your heating and electricity bill?: No Do you have trouble taking care of your child, family member or friend?: No Do you have trouble with day-to-day activities such as bathing, preparing meals, shopping, managing finances, etc.?: No Are you currently unemployed and looking for a job?: No Are you interested in more education?: Yes Currently or been in a relationship where the following occur: No concerns reported THRIVE Score: 0 NEFTALI-7 AMB Questionnaire NEFTALI-7 Date NEFTALI - 7 assessed: 05/19/25 Source: Developed by Drs. Lopez Sanches, Elvira Jackson, Jeremy Morales and colleagues, with an educational emma from [employer]. Physical exam (Primary Care) Vital Signs: Last Vital Signs Temp 97.8 F 09/22/25 13:31 Pulse 97 09/22/25 13:31 Resp 16 09/22/25 13:31 BP 114/60 09/22/25 13:31 Pulse Ox 96 09/22/25 13:31 Oxygen Delivery Method Room Air 09/22/25 13:31 BMI result Body Mass Index 29.1 Tobacco/Smoking Status: Tobacco use Status Tobacco use date assessed 09/22/25 09/22/25 13:35 Patient Tobacco Use Status Never used Tobacco 09/22/25 13:35 e-Cigarette/Vaping Use Currently Using 09/22/25 13:35 Thrive Assessment: Date of Thrive Assessment Date Thrive assessed 05/19/25 09/22/25 13:35 Currently or been in a relationship where the following occur: No concerns reported Coding Level of Care Code Est Pt Level 4 (34557) Add On Problem Visit Only Diagnoses External hemorrhoids K64.4 thyroiditis O90.5 anxiety O99.345; F41.8 Oral contraception initial prescription Z30.011 Assessment & Plan Assessment & Plan (1) External hemorrhoids: Code(s): K64.4 - Residual hemorrhoidal skin tags Category: Medical (2) thyroiditis: Onset Date: ~05/21/25 Comment: baby born 01/23/2027 Code(s): O90.5 - thyroiditis Category: Medical (3) anxiety: Code(s): O99.345 - Other mental disorders complicating the puerperium; F41.8 - Other specified anxiety disorders Category: Medical (4) Oral contraception initial prescription: Onset Date: ~09/22/25 Code(s): Z30.011 - Encounter for initial prescription of contraceptive pills Category: Medical Plan . Orders: Referrals Colon & Rectal Referral K64.4 - Residual hemorrhoidal skin tags Nurse Navigator Referral F41.1 - Generalized anxiety disorder Medications: New ibuprofen 600 mg PO Q8H PRN 21 tabs 0RF pain 7 days hydrocortisone acetate (Anusol-HC) 25 mg RI BEDTIME 12 ea 0RF norethin-e.estradiol triphasic 0.5/0.75/1 mg- 35 mcg (Alyacen (28)) 1 tab PO DAILY 84 tabs 2RF
[2025-09-22 13:31] VITALS: BP 114/60; PULSE 97; RESP 16; TEMP 36.6; O2SAT 96; BMI 29.1
--- OUTSIDE RECORDS SUMMARY | 2025-09-22 14:51 | XMS_ITS | Clinical Summary ---
[facility] Address [address] [place] [address] Care Team Providers Care Interior Design Coordinator Name Role Phone Unavailable Primary Care Provider [...] Cervical Cancer Screening: P ap Smear 2019 Depression Screening 09/23/2024 HPV Vaccines (1 - 3-dose SCD M series) 2025 COVID-19 Vaccine ( - 2024-2 6 season) 2025 Influenza Vaccine (#1) 2025 RSV Immunization Adult Patie nts (1 - 1-dose 75+ series) 2073 HIB Vaccines Aged Out No longer eligi [...]
--- OUTSIDE RECORDS SUMMARY | 2025-09-22 14:51 | XMS_ITS | Data Portability ---
Author Organization [facility], [address] Address [address] [place] [address] Assessment No assessment recorded. Plan of Treatment [...] Diagnosis SNOMED-CT Code Diagnosis ICD10 Code Diagnosis IMO Codes Diagnosis Note [id number] [address] [place] [address] 08/03/2020 17:05:46 08/03/2020 19:22:12 [id number] [address] [place] [address] 10/30/2020 11:38:22 10/30/2020 13:14:57 [id number] [address] [facility] [place] [address] 06/18/2021 18:22:04 06/18/2021 20:21:37 [id number] [address] [place] [address] 08/08/2020 09:37:08 08/09/2020 07:51:15 [id number] [address] [facility] [place] [address] 03/19/2020 13:12:16 03/19/2020 14:58:35 [id number] [address] [place] [address] 01/21/2021 13:31:21 01/21/2021 13:54:59 [id number] [address] [facility] [place] [address] 09/07/2021 16:59:32 09/07/2021 17:45:11 [id number] Anat Rod, SHIRA [address] [address] 05/28/2024 16:17:49 05/28/2024 17:08:40 Administrative reason for encounter [id number] Z02.9 not sure why this chart was created . no data found Health Concerns Section Related Observation LastModified by Organization Detai ls LastModified Time None Recorded Concern Status LastModified by Organization Details LastModified Time None Recorded Advance Directives Directive None Recorded Payers Insurance Date Sequence Insurance Name Policy Number Policy Sahu Covered Member ID Sahu Member ID Guarantor Name 05/28/2024 1 [facility] () Ashley Acevedo [id number] Ashley Acevedo OBGyn Episode No OBEpisode recorded.
--- OUTSIDE RECORDS SUMMARY | 2025-09-22 14:51 | XMS_ITS | Data Portability ---
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 Plan of Treatment Reminders Order Date Submit Date Provider Last Modified By Organization Details Last Modified Time Details Appointments None recor ded. Lab CBC w/ auto diff 2017 018 [facility], [address], [address], [place], [address], 8 21:43:14 TSH, serum or plasm a 2017 018 [facility], [address], [place], [address], 8 23:48:17 CMP, serum or plasm a 2017 018 [facility], [address], [address], [place], [address], 8 23:31:38 H pylor i igm+i gg+ig a Ab, serum 2017 018 [facility], [address], [place], [address], 8 22:52:50 tissu e trans gluta wai e iga Ab, serum 2017 018 [facility], [address], [place], [address], 8 12:45:12 tissu e trans gluta wai e igg Ab, serum 2017 018 [facility], [address], [place], [address], 8 16:26:16 CT + NG DNA, PCR, urine 2017 018 [email or web address] [facility], [address], [address], [place], [address], 8 10:29:03 TSH, serum or plasm a 2017 018 [facility], [address], [place], [address], 8 21:22:26 RPR (rapi d plasm a reagi n), titer , serum 2017 018 [facility], [address], [address], [place], [address], 8 09:43:43 HIV 1+2 AB + HIV 1 p24 Ag, quali tativ e immun oassa y, serum 2017 018 [facility], [address], [address], [place], [address], 8 08:58:12 Referral gastr leah winslow ist refer ral 2017 018 [facility], [address], [place], [address], 9 11:36:36 physi mitra badillot refer ral - Low back pain with radia tion. Inter mitte nt. 2017 018 [email or web address] Not available 8 08:07:22 Procedures None recor [...] By Organization Details Last Modified Time 07/30/2017 [id number] low back pain: exercises Not available 07/30/2017 14:19:21 back strain: care instructions Not available 07/30/2017 14:19:21 I have reviewed the note and agree with the assessment and plan of care. [email or web address] Not available 07/30/2017 15:08:31 12/18/2017 [id number] back care and preventing injuries: care instructions [email or web address] Not available 12/18/2017 13:19:33 getting back to normal after low back pain: care instructions [email or web address] Not available 12/18/2017 13:19:33 learning about relief for back pain [email or web address] Not available 12/18/2017 13:19:33 01/20/2018 [id number] back care and preventing injuries: care instructions [email or web address] Not available 01/20/2018 14:06:43 getting back to normal after low back pain: care instructions [email or web address] Not available 01/20/2018 14:06:43 learning about relief for back pain [email or web address] Not available 01/20/2018 14:06:43 Essential Tremor: Care Instructions [email or web address] Not available 01/20/2018 14:06:43 05/23/2018 [id number] call/ return for any concerns. [email or web address] Not available 05/23/2018 14:52:09 I have reviewed the note and agree with the assessment and plan of care. [email or web address] Not available 05/23/2018 15:23:37 09/04/2018 [id number] call or return for worsening or concerns. [email or web address] Not available 09/04/2018 13:49:48 Reason for Referral Low back pain with radiation . Intermittent. Referring Physician: Roberto Price, [facility], Encounter Date: 01/20/2018 Last Model Maker Referral for Abnormal weight loss Referring Physician: Doris Layton, [facility], Encounter Date: 09/04/2018 Results Created Date Observation Date Name Description Value Unit Range Abnormal Flag Note LastModifiedBy Organization Detail LastModifiedTime 01/21/2001/20/2018 TSH, serum or plasm a TSH 0.69 mIU/m L (0.40- 4.00) Not Available [facility] (Centralized Electronic Ordering - All Locations) Patient Can Go To The Location Of Their Choice, [id number] 01/20/2018 21:22:26 01/21/2001/21/2018 HIV 1+2 AB + [...] Go To The Location Of Their Choice, [id number] 01/21/2018 08:58:12 01/21/2001/21/2018 RPR (rapi d plasm a reagi n), titer , serum syphilis screen by jakob NEGAT BRANDIE Refer ence range : Negat brandie Resul t repor mynor to [place] DPH. This test was perfo rmed on the Abbot t Archi tect immun oassa y syste m. Not Available [facility] (Centralized Electronic Ordering - All Locations) Patient Can Go To The Location Of Their Choice, [id number] 01/21/2018 09:43:43 01/21/2001/21/2018 RPR (rapi d plasm a reagi n), titer , serum RPR titer result NOT INDICA MYNOR Not Available [facility] (Centralized Electronic Ordering - All Locations) Patient Can Go To The Location Of Their Choice, [id number] 01/21/2018 09:43:43 01/21/2001/21/2018 RPR (rapi d plasm a reagi n), titer , serum tppa result NOT INDICA MYNOR Not Available [facility] (Centralized Electronic Ordering - All Locations) Patient Can Go To The Location Of Their Choice, [id number] 01/21/2018 09:43:43 01/21/2001/21/2018 RPR (rapi d plasm a reagi n), titer , serum syphilis interpretati on Indic ative of the absen ce of infec tion with Trepo nemal palli dum. Test may be negat brandie in cases of incub ating or early prima ry syphi lis. Consi anthony repea t testi ng in sever al weeks if clini mitra suspi cion is high. Not Available [facility] (Centralized Electronic Ordering - All Locations) Patient Can Go To The Location Of Their Choice, [id number] 01/21/2018 09:43:43 09/04/2009/04/2018 CBC w/ auto diff WBC 8.4 K/mm3 (4.0-1 1.0) Not Available [facility] (Centralized Electronic Ordering - All Locations) Patient Can Go To The Location Of Their Choice, [id number] 09/04/2018 21:43:14 09/04/2009/04/2018 CBC w/ auto diff RBC 4.62 M/mm3 (4.20- 5.40) Not Available [facility] (Centralized Electronic Ordering - All Locations) Patient Can Go To The Location Of Their Choice, [id number] 09/04/2018 21:43:14 09/04/2009/04/2018 CBC w/ auto diff HGB 13.1 gm/dL (11.7- 15.5) Not Available [facility] (Centralized Electronic Ordering - All Locations) Patient Can Go To The Location Of Their Choice, [id number] 09/04/2018 21:43:14 09/04/20 18 09/04/2018 CBC w/ auto diff HCT 39.4 % (35.7- 45.8) Not Available [facility] (Centralized Electronic Ordering - All Locations) Patient Can Go To The Location Of Their Choice, 09/04/2018 21:43:14 09/04/2009/04/2018 CBC w/ auto diff MCV 85.3 fL [...] 09/04/2018 21:43:14 09/04/2009/04/2018 CBC w/ auto diff MCHC 33.2 g/dL [...] 09/04/20 18 09/04/2018 CBC w/ auto diff neut # 5.8 K/mm3 (1.3-7 .0) Not Available [facility] (Centralized Electronic Ordering - All Locations) Patient Can Go To The Location Of Their Choice, 09/04/2018 21:43:14 09/04/20 18 09/04/2018 CBC w/ auto diff lymph # 1.9 [...] Go To The Location Of Their Choice, [id number] 09/04/2018 21:43:14 09/04/20 18 09/04/2018 CBC w/ auto diff monocyte 5.4 % (4.5-1 0.5) Not Available [facility] (Centralized Electronic Ordering - All Locations) Patient Can Go To The Location Of Their Choice, [id number] 09/04/2018 21:43:14 09/04/20 18 09/04/2018 CBC w/ auto diff eo 1.1 % (0-6) Not Available [facility] (Centralized Electronic Ordering - All Locations) Patient Can Go To The Location Of Their Choice, [id number] 09/04/2018 21:43:14 09/04/20 18 09/04/2018 CBC w/ auto diff baso 0.4 % (0-2) Not Available [facility] (Centralized Electronic Ordering - All Locations) Patient Can Go To The Location Of Their Choice, [id number] 09/04/2018 21:43:14 09/04/20 18 09/04/2018 CBC w/ auto diff imm gran 0.5 % (0.0-0 .6) Not Available [facility] (Centralized Electronic Ordering - All Locations) Patient Can Go To The Location Of Their Choice, [id number] 09/04/2018 21:43:14 09/04/20 18 09/04/2018 H pylor [...] PRET RESUL TS TOGET HER WITH CLINI MITRA AND OTHER DIAGN OSTIC FINDI NGS, AND [...] 18 09/04/2018 CMP, serum or plasm a anion gap 12 (4-17) Not Available [facility] (Centralized Electronic Ordering - All Locations) Patient Can Go To The Location Of Their Choice, 09/04/2018 23:31:38 09/04/20 18 09/04/2018 CMP, serum or plasm a albumin 4.8 gm/dL (3.4-4 .8) Not Available [facility] (Centralized Electronic Ordering - All Locations) Patient Can Go To The Location Of Their Choice, 09/04/2018 23:31:38 09/04/20 18 09/04/2018 CMP, serum or plasm a calcium 9.8 mg/dL (8.6-1 0.5) Not Available [facility] (Centralized Electronic Ordering - All Locations) Patient Can Go To The Location Of Their Choice, 09/04/2018 23:31:38 09/04/20 18 09/04/2018 CMP, serum or plasm a bilirubin,to yoli 1.0 mg/dL (0-1.2 ) Not Available [facility] (Centralized Electronic Ordering - All Locations) Patient Can Go To The Location Of Their Choice, 09/04/2018 23:31:38 09/04/20 18 09/04/2018 CMP, serum or plasm a total protein 7.4 gm/dL (6.2-8 .2) Not Available [facility] (Centralized Electronic Ordering - All Locations) Patient Can Go To The Location Of Their Choice, 09/04/2018 23:31:38 09/04/20 18 09/04/2018 CMP, serum or plasm a Ag ratio 1.8 Not Available [facility] (Centralized Electronic Ordering - All Locations) Patient Can Go To The Location Of Their Choice, 09/04/2018 23:31:38 09/04/20 18 09/04/2018 CMP, serum or plasm a AST 15 [...] 23:31:38 09/04/2009/04/2018 CMP, serum or plasm a ALT 14 [...] tive) Unit: U/mL Test Perfo rmed by: [facility], [address], [place] [address] Labor atory Direc tor: Mike madsen III, M.D. Not Available [facility] (Centralized Electronic Ordering - All Locations) Patient Can Go To The Location Of Their Choice, [id number] 09/08/2018 16:26:16 09/04/20 18 09/15/2018 tissu e [...] Go To The Location Of Their Choice, [id number] 09/15/2018 12:45:12 06/19/20 18 06/19/2018 XR, ankle No observ ation record ed. [email or web address] [facility] Diagnosit Imaging Dept [address] [place] [address], [place], [address], 06/20/2018 09:14:15 Result Notes None recorded. Problems Name Problem SNOMED Code Status Onset Date Resolution Date Notes Provider Name and Address Organization Details Recorded Time No current problems or disabili ty 565134725 Active VICKIE Belcher, [facility] [place] 7 09:03:46 Strain of hamstrin g muscle 18459242190 4 Completed 08/31/2014 Doris Layton, [facility] [address] [facility] [address], [facility] [place], [address], [facility] [place] 6 15:24:48 Pain in thumb 609012060 Completed 05/01/2017 VICKIE Belcher, [facility] 7 09:00:59 Pain in right lower limb 894375955 Completed 05/01/2017 Tomasa Corcoran MA null, [facility] 7 09:00:56 Dysuria 31197312 Completed 200804/06/2014 RECORDED 12/29/19 09 8:28AM BY FRIDA SALAZAR MA, CHRIS ON/ADDEN BHAVIN Layton, [facility] [address] [address], [place], [address], [facility] 6 15:24:48 Pediculo sis capitis 53331572 Completed 200804/06/2014 IMPRESSI ON: SPOKE TO MOM, SEES EGGS, KNOWS HOW TO TREAT AND USE COMB; RECORDED 12/29/19 09 9:07AM BY ANTON KIM PA-C, CHRIS ON/ADDEN DUM Doris Layton, [place] [address] [address] [address], [place], [address], [facility] 6 15:24:48 Eruption 934361929 Completed 200804/06/2014 RECORDED 12/29/19 09 8:28AM BY FRIDA SALAZAR MA, CHRIS ON/ADDEN BHAVIN Layton, [place] [address] [address], [place], [address], [facility] 6 15:24:48 Viral disease 69902019 Completed 200804/06/2014 RECORDED 12/29/19 09 8:28AM BY FRIDA SALAZAR MA, CHRIS ON/ANAYAEN BHAVIN Layton, [facility] [address] [address], [place], [address], [facility] 6 15:24:47 Dysuria 09726104 Completed 200805/03/2014 RECORDED 12/29/19 09 8:28AM BY FRIDA SALAZAR MA, CHRIS ON/ADDEN DUM Doris Layton, [facility] [address] [facility] [address], [place], [address], [facility] 6 15:24:48 Pediculo sis capitis 62326460 Completed 200805/03/2014 IMPRESSI ON: SPOKE TO MOM, SEES EGGS, KNOWS HOW TO TREAT AND USE COMB; RECORDED 12/29/19 09 9:07AM BY ANTON KIM PA-C, CHRIS ON/ADDEN DUM Doris Layton, [facility] [address] [facility] [address], [place], [address], [facility] 6 15:24:48 Eruption 122336744 Completed 200805/03/2014 RECORDED 12/29/19 09 8:28AM BY FRIDA SALAZAR MA, CHRIS ON/ADDEN DUM Doris Layton, [facility] [address] [facility] [address], [place], [address], [facility] 6 15:24:48 Viral disease 58387455 Completed 200805/03/2014 RECORDED 12/29/19 09 8:28AM BY FRIDA SALAZAR MA, CHRIS ON/ADDEN DUM Doris Layton, [facility] [address] [facility] [address], [place], [address], [facility] 6 15:24:48 Cough 61674923 Completed 200804/06/2014 RECORDED 08/11/20 09 1:33PM BY FRIDA SALAZAR MA, CHRIS ON/ADDEN DUM Doris Layton, [facility] [address] [facility] [address], [place], [address], [facility] 6 15:24:48 Cough 28064769 Completed 200805/03/2014 RECORDED 08/11/20 09 1:33PM BY FRIDA SALAZAR MA, MAHINATI ON/ADDROSALIA Layton, [facility] [address] [facility] [address], [place], [address], [facility] 6 15:24:48 Active or passive immuniza tion Completed 200904/06/2014 RECORDED 06/08/20 10 4:37PM BY ANTON KIM PA-C, OFFICE VISIT Doris Layton, [facility] [address] [place] [address] [address], [place], [address], [facility] 6 15:24:48 Active or passive immuniza tion Completed 200905/03/2014 RECORDED 06/08/20 10 4:37PM BY ANTON KIM PA-C, OFFICE VISIT Doris Layton, [facility] [address] [place] [address] [address], [place], [address], [facility] 6 15:24:48 Influenz a vaccine needed [id number] 06 Completed 201004/06/2014 DATE: 06/14/20 11; RECORDED 07/15/20 12 9:11AM BY QUENTIN MOREIRA MA, CHRIS ON/TONI Layton, [address], [place], [address], [facility] 6 15:24:48 Varicell a vaccinat ion Completed 201004/06/2014 RECORDED 06/14/20 11 3:46PM BY ANTON KIM PA-C, OFFICE VISIT Doris Layton, [facility] [address] [facility] [address], [place], [address], [facility] 6 15:24:48 Influenz a vaccine needed [id number] 06 Completed 201005/03/2014 DATE: 06/14/20 11; RECORDED 07/15/20 12 9:11AM BY QUENTIN MOREIRA MA, CHRIS ON/ADDEN DUM Doris Layton, [facility] [address] [facility] [address], [place], [address], [facility] 6 15:24:48 Varicell a vaccinat ion Completed 201005/03/2014 RECORDED 06/14/20 11 3:46PM BY ANTON KIM PA-C, OFFICE VISIT Doris Layton, [facility] [address] [place] [address] [address], [place], [address], [facility] 6 15:24:48 Abdomina l pain 45311453 Completed 201104/06/2014 IMPRESSI ON: NON-ACUT E ABDOMEN, IN-HOUSE UA CLEAR, SUSPECT VIRAL ETIOLOGY , FOR NOW WITH MONITOR AND WILL RTC/ER IF WORSENIN G ABDOMINA L PAIN, FEVER OR VOMITING .; RECORDED 06/18/20 12 10:51AM BY QUENTIN MOREIRA MA, CHRIS ON/ADDROSALIA Layton, [facility] [address] [facility] [address], [place], [address], [facility] 6 15:24:48 Radiolog y result abnormal Completed 201104/06/2014 RECORDED 06/18/20 12 10:50AM BY QUENTIN MOREIRA MA, CHRIS ON/ADDEN BHAVIN Layton, [facility] [address] [facility] [address], [place], [address], [facility] 6 15:24:48 Acute lymphade nitis 92005811 Completed 201104/06/2014 RECORDED 06/18/20 12 10:50AM BY QUENTIN MOREIRA MA, CHRIS ON/ADDEN BHAVIN Layton, [facility] [address] [facility] [address], [place], [address], [facility] 6 15:24:48 Acute pharyngi tis 575416895 Completed 201104/06/2014 IMPRESSI ON: IN HOUSE STREP, SEND OUT PENDING. SUSPECT VIRAL ETIOLOGY . ENCOURAG ED REST, HYDRATIO N, TYLENOL/ MOTRIN PRN.; RECORDED 06/18/20 12 10:50AM BY QUENTIN MOREIRA MA, CHRIS ON/TONI Layton, [address] [facility] [address], [place], [address], [facility] 6 15:24:48 Constipa tion 77409970 Completed 201104/06/2014 RECORDED 06/18/20 12 10:50AM BY QUENTIN MOREIRA MA, CHRIS ON/TONI Layton, [facility] [address], [place], [address], [facility] 6 15:24:48 Pain of elbow region 41584193 Completed 201104/06/2014 IMPRESSI ON: SUSPECT THIS IS SECONDAR Y TO RECENT INJURY. NL EXAM, MOM AND PT REASSURE D. CONTACT ME FOR WORSENIN G.; RECORDED 06/18/20 12 10:50AM BY QUENTIN MOREIRA MA, CHRIS ON/TONI Layton, [facility] [address] [address], [place], [address], [facility] 6 15:24:48 Headache 77384310 Completed 201104/06/2014 RECORDED 06/18/20 12 10:50AM BY QUENTIN MOREIRA MA, ANNOTATI ON/TONI Layton, [facility] [address] [facility] [address], [place], [address], [facility] 6 15:24:48 Nonvenom ous insect bite of multiple sites 328308940 Completed 201104/06/2014 RECORDED 06/18/20 12 10:50AM BY QUENTIN MOREIRA MA, CHRIS ON/TONI Layton, [facility] [address] [facility] [address], [place], [address], [facility] 6 15:24:48 Anorecta l disorder 405242656 Completed 201104/06/2014 IMPRESSI ON: ONGOING ISSUE, WITH HEMORRHO IDS ON EXAM AND NO FISSURE APPRECIA MYNOR, ALTHOUGH IT IS POSSIBLE THERE IS A SMALL UNVISUAL IZED ANAL FISSURE CAUSING HER DISCOMFO RT. [facility] ED CONTINUE D USE OF FIBER TO PREVENT CONSTIPA TION/STR AINING. MAY ALSO TRY SMALL AMT OF PROCTOFO AM RECTALLY FOR SX RELIEF. [facility] ED 2 WEEK TRIAL AND F/U WITH PCP IF SXS PERSIST. ; RECORDED 06/18/20 12 10:50AM BY QUENTIN MOREIRA MA, CHRIS ON/ADDROSALIA Layton, [facility] [address] [facility] [address], [place], [address], [facility] 6 15:24:48 Well child [id number] Completed 201104/06/2014 RECORDED 06/18/20 12 10:50AM BY QUENTIN MOREIRA MA, CHRSI ON/TONI Layton, [facility] [address] [facility] [address], [place], [address], [facility] 6 15:24:48 Abdomina l pain 36816760 Completed 201105/03/2014 IMPRESSI ON: NON-ACUT E ABDOMEN, IN-HOUSE UA CLEAR, SUSPECT VIRAL ETIOLOGY , FOR NOW WITH MONITOR AND WILL RTC/ER IF WORSENIN G ABDOMINA L PAIN, FEVER OR VOMITING .; RECORDED 06/18/20 12 10:51AM BY QUENTIN MOREIRA MA, CHRIS ON/TONI Layton, [facility] [address] [facility] [address], [place], [address], [facility] 6 15:24:48 Radiolog y result abnormal Completed 201105/03/2014 RECORDED 06/18/20 12 10:50AM BY QUENTIN MOREIRA MA, CHRIS ON/TONI Layton, [facility] [address] [facility] [address], [place], [address], [facility] 6 15:24:48 Acute lymphade nitis 40484924 Completed 201105/03/2014 RECORDED 06/18/20 12 10:50AM BY QUENTIN MOREIRA MA, CHRIS ON/TONI Layton, [facility] [address] [facility] [address], [place], [address], [facility] 6 15:24:48 Acute pharyngi tis 938955177 Completed 201105/03/2014 IMPRESSI ON: IN HOUSE STREP, SEND OUT PENDING. SUSPECT VIRAL ETIOLOGY . ENCOURAG ED REST, HYDRATIO N, TYLENOL/ MOTRIN PRN.; RECORDED 06/18/20 12 10:50AM BY QUENTIN MOREIRA MA, CHRIS ON/TONI Layton, [facility] [address] [facility] [address], [place], [address], [facility] 6 15:24:48 Constipa tion 92677009 Completed 201105/03/2014 SAW GI - 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 BUT SHE WON'T TAKE IT; RECORDED 06/18/20 12 10:50AM BY QUENTIN MOREIRA MA, CHRIS ON/TONI Layton, [facility] [address] [facility] [address], [place], [address], [facility] 6 15:24:48 Pain of elbow region 70361778 Completed 201105/03/2014 IMPRESSI ON: SUSPECT THIS IS SECONDAR Y TO RECENT INJURY. NL EXAM, MOM AND PT REASSURE D. CONTACT ME FOR ANAID Moore.; RECORDED 06/18/20 12 10:50AM BY QUENTIN MOREIRA MA, CHRIS ON/ADDEN DUM Doris Layton, [facility] [address] [facility] [address], [place], [address], [facility] 6 15:24:48 Headache 06994170 Completed 201105/03/2014 RECORDED 06/18/20 12 10:50AM BY QUENTIN MOREIRA MA, CHRIS ON/ADDEN DUM Doris Layton, [facility] [address] [facility] [address], [place], [address], [facility] 6 15:24:48 Nonvenom ous insect bite of multiple sites 695426794 Completed 201105/03/2014 RECORDED 06/18/20 12 10:50AM BY QUENTIN MOREIRA MA, CHRIS ON/ADDEN DUM Doris Layton, [facility] [address] [facility] [address], [place], [address], [facility] 6 15:24:48 Anorecta l disorder 753581160 Completed 201105/03/2014 IMPRESSI ON: ONGOING ISSUE, WITH HEMORRHO IDS ON EXAM AND NO FISSURE APPRECIA MYNOR, ALTHOUGH IT IS POSSIBLE THERE IS A SMALL UNVISUAL IZED ANAL FISSURE CAUSING HER DISCOMFO RT. [facility] ED CONTINUE D USE OF FIBER TO PREVENT CONSTIPA TION/STR AINING. MAY ALSO TRY SMALL AMT OF PROCTOFO AM RECTALLY FOR SX RELIEF. [facility] ED 2 WEEK TRIAL AND F/U WITH PCP IF SXS PERSIST. ; RECORDED 06/18/20 12 10:50AM BY QUENTIN MOREIRA MA, CHRIS ON/ADDEN DUM Doris Layton, [facility] [address] [facility] [address], [place], [address], [facility] 6 15:24:48 Joint pain in ankle and foot Completed 201104/06/2014 IMPRESSI ON: MILD INJURY RECENTLY PLAYING SOCCER, NO SWELLING , WB FINE. RICE, CONSIDER BRACE WHILE PLAYING, NSAID PRN.; RECORDED 07/15/20 12 9:11AM BY QUENTIN MOREIRA MA, CHRIS COLLADO/TONI Layton, [facility] [address] [facility] [address], [place], [address], [facility] 6 15:24:48 Joint pain in ankle and foot Completed 201105/03/2014 IMPRESSI ON: MILD INJURY RECENTLY PLAYING SOCCER, NO SWELLING , WB FINE. 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).; RECORDED 01/10/20 13 2:48PM BY ZACHERY CERDA MA, CHRIS ON/TONI Layton, [address] [facility] [address], [place], [address], [facility] 6 15:24:48 Injury of head 48120196 Completed 201205/03/2014 IMPRESSI ON: WITHOUT LOC, ASSYMPTO MATIC X 4 DAYS, 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).; RECORDED 01/10/20 13 2:48PM BY ZACHERY CERDA MA, CHRIS COLLADO/TONI Layton, [address] [facility] [address], [place], [address], [facility] 6 15:24:48 Patient status finding [id number] Completed 201204/06/2014 RECORDED 07/14/20 13 9:12AM BY ZACHERY CERDA MA, ANNOTATI ON/TONI Layton, [facility] [address], [place], [address], [facility] 6 15:24:48 Knee pain Completed 201204/06/2014 IMPRESSI ON: ONGOING ISSUE FOR PT SINCE MY EVAL 04/02 WHICH INCLUDED NORMAL KNEE XRAYS, CBC, RF, SED RATE. AT THIS POINT BEST EVAL BY ORTHO. WE WILL ARRANGE FOR VISIT WITH SHRINERS .; RECORDED 07/14/20 13 9:12AM BY ZACHERY CERDA MA, CHRIS ON/TONI Layton, [facility] [address] [facility] [address], [place], [address], [facility] 6 15:24:48 Patient status finding [id number] Completed 201205/03/2014 RECORDED 07/14/20 13 9:12AM BY ZACHERY CERDA MA, CHRIS ON/TONI Layton, [facility] [address] [facility] [address], [place], [address], [facility] 6 15:24:48 Knee pain Completed 201205/03/2014 IMPRESSI ON: ONGOING ISSUE FOR PT SINCE MY EVAL 04/02 WHICH INCLUDED NORMAL KNEE XRAYS, CBC, RF, SED RATE. AT THIS POINT BEST EVAL BY ORTHO. WE WILL ARRANGE FOR VISIT WITH SHRINERS .; RECORDED 07/14/20 13 9:12AM BY ZACHERY CERDA MA, CHRIS ON/TONI Layton, [facility] [address] [facility] [address], [place], [address], [facility] 6 15:24:48 Acute upper respirat ory infectio n [id number] Completed 201208/31/2014 IMPRESSI ON: MOM WANTS SOMETHIN G FOR COUGH. VIRAL. IF NOT IMPROVIN G IN 1 WEEK CALL THE OFFICE.; RECORDED 09/08/20 13 4:06PM BY OJ MENDOZA, OFFICE VISIT KAREEM Ken [address] [address], [place], [address], [facility] 6 15:24:48 Jihan nunes [id number] Completed 201204/06/2014 IMPRESSI ON: THEY WILL CALL HER EYE DR; RECORDED 09/08/20 13 9:39AM BY QUENTIN MOREIRA MA, ANNOTATI ON/ADDEN DUM KAREEM Ken [address] [address], [place], [address], [facility] 6 15:24:48 Disorder of skin and/or subcutan eous tissue [id number] Completed 201204/06/2014 IMPRESSI ON: SKIN TAG, PT'S MOM TO MAKE APPT WITH DERM FOR REMOVAL D/T COSMETIC REASON; RECORDED 09/08/20 13 9:39AM BY QUENTIN MOREIRA MA, CHRIS ON/ADDEN DUM KAREEM Ken [address] [address], [place], [address], [facility] 6 15:24:48 Patient status finding [id number] Completed 201208/31/2014 RECORDED 09/08/20 13 9:40AM BY QUENTIN MOREIRA MA, OFFICE VISIT KAREEM Ken [address] [address], [place], [address], [facility] 6 15:24:48 Immuniza tion refused Completed 201208/31/2014 RECORDED 09/08/20 13 9:45AM BY QUENTIN MOREIRA MA, OFFICE VISIT KAREEM Ken [address] [address], [place], [address], [facility] 6 15:24:48 Well child [id number] Completed 201208/31/2014 IMPRESSI ON: HEALTHY VISIT, RETURN 1 YR OR SOONER PRN.; RECORDED 09/08/20 13 9:40AM BY QUENTIN MOREIRA MA, OFFICE VISIT Doris Layton, [facility] [address] [address], [place], [address], [facility] 6 15:24:48 Kyphosco liosis and scoliosi s Completed 201204/06/2014 RESOLVED DATE: 09/08/20 13; STORY: X-RAYS REVEALED NO SCOLIOSI S IN 2008; RECORDED 09/08/20 3:44PM BY OJ MENDOZA, CHRIS ON/ADDEN BHAVIN Layton, [facility] [address] [address], [place], [address], [facility] 6 15:24:48 Sprain of ankle [id number] Completed 201204/06/2014 IMPRESSI ON: IF NOT IMPROVIN G IN 1 WEEK CALL THE OFFICE.; RECORDED 09/08/20 13 9:39AM BY QUENTIN MOREIRA MA, CHRIS ON/ADDROSALIA Layton, [address] [address], [place], [address], [facility] 6 15:24:48 Pain in limb 57114280 Completed 201204/06/2014 IMPRESSI ON: SUSPECT GAME KEEPERS THUMB.; RECORDED 09/08/20 13 9:39AM BY QUENTIN MOREIRA MA, CHRIS ON/ADDROSALIA Layton, [facility] [address] [address], [place], [address], [facility] 6 15:24:48 Jihan nunes [id number] Completed 201205/03/2014 IMPRESSI ON: THEY WILL CALL HER EYE DR; RECORDED 09/08/20 13 9:39AM BY QUENTIN MOREIRA MA, ANNOTATI ON/ADDEN BHAVIN Layton, [facility] [address] [facility], [place], [address], [facility] 6 15:24:48 Disorder of skin and/or subcutan eous tissue [id number] Completed 201205/03/2014 IMPRESSI ON: SKIN TAG, PT'S MOM TO MAKE APPT WITH DERM FOR REMOVAL D/T COSMETIC REASON; RECORDED 09/08/20 13 9:39AM BY QUENTIN MOREIRA MA, CHRIS ON/ADDEN BHAVIN Layton, [facility] [address] [facility] [address], [place], [address], [facility] 6 15:24:48 Kyphosco liosis and scoliosi s Completed 201205/03/2014 RESOLVED DATE: 09/08/20 13; STORY: X-RAYS REVEALED NO SCOLIOSI S IN 2008; RECORDED 09/08/20 13 3:44PM BY OJ MENDOZA, MAHINATI ON/ADDROSALIA Layton, [facility] [address] [facility], [place], [address], [facility] 6 15:24:48 Sprain of ankle [id number] Completed 201205/03/2014 IMPRESSI ON: IF NOT IMPROVIN G IN 1 WEEK CALL THE OFFICE.; RECORDED 09/08/20 13 9:39AM BY QUENTIN MOREIRA MA, ANNOTATI ON/TONI Layton, [facility] [address] [facility], [place], [address], [facility] 6 15:24:48 Pain in limb [id number] Completed 201205/03/2014 IMPRESSI ON: SUSPECT GAME KEEPERS THUMB.; RECORDED 09/08/20 13 9:39AM BY QUENTIN MOREIRA MA, CHRIS ON/TONI Layton, [facility] [address] [facility], [place], [address], [facility] 6 15:24:48 Low back pain [id number] Active 2017 Roberto russell MD [address], [place], [address], [facility] 8 14:05:37 [facility] tremor 208315926 Active 2017 Roberto russell MD [address], [place], [address], [facility] 8 14:05:38 Problem Notes None recorded. Procedures Surgical History Date Name Laterality Status Provider Name and Address Organization Details Recorded Time No surg proc w/in 30 days completed Frida Norman [facility] 07/12/2017 11:04:21 Imaging Results None recorded. Procedure Notes None recorded. Medical Equipment None [...] RECORDED 11/14/19 12 1:17PM BY WISAM CAMACHO, ANNOTATI ON/ADDEN DUM;THIS ORDER DISCONTI NUED PER MEDI-SPA [...] 06/09/20 10 6:09AM BY ANTON KIM PA-C, ANNOTATI ON/TONI DUM;THIS ORDER DISCONTI NUED PER MEDI-SPA N. [...] 12/19 completed RECORDED 02/07/20 08 10:14AM BY ROBERTO MATTHEWS MD, MEDICATI ON AUTO-MYAH CTIVATIO N; Not Available Not Available Not Available Miralax ONCE TO TWICE DAILY 11/14 completed RECORDED 11/14/19 12 8:59AM BY QUENTIN MOREIRA MA, OFFICE VISIT; Not Available Not Available Not Available Thumb Stabilize r DAILY 07/17 completed RECORDED 07/17/20 13 11:04AM BY WISAM CAMACHO, ANNOTATI ON/ADDEN DUM;842. 13 THUMB SPRAIN Not Available Not Available Not Available butalbita l-acetami nophen-ca ffeine 50 mg-300 mg-40 mg capsule 05/01 completed Not Available Not Available Not Available Vitals Date Recorded Body height Body mass index (BMI) Body weight Body temperature Oxygen saturation Heart rate Systolic And Diastolic Provider Name and Address Organization Details Last Updated DateTime 8 161.29 cm 21.8 kg/m2 78176.7 5 g 97.7 [degF] 98 % 81 /min 107/63 mm[Hg] Tomasa Corcoran MA [facility] 8 12:54:32 Date Recorded Body height Body mass index (BMI) Body weight Heart rate Oxygen saturation Body temperature Systolic And Diastolic Provider Name and Address Organization Details Last Updated DateTime 8 161.29 cm 20.9 kg/m2 26997.0 8 g 70 /min 98 % 97.1 [degF] 118/60 mm[Hg] Rai Soriano [facility] 8 13:42:03 Date Recorded Body height Body mass index (BMI) Body weight Oxygen saturation Heart rate Body temperature Systolic And Diastolic Provider Name and Address Organization Details Last Updated DateTime 8 161.29 cm 21.6 kg/m2 70610.1 5 g 98 % 88 /min 98.9 [degF] 107/54 mm[Hg] Kathy Sidhu MA [facility] 8 14:47:38 Date Recorded Body height Oxygen saturation Heart rate Body mass index (BMI) Body weight Body temperature Systolic And Diastolic Provider Name and Address Organization Details Last Updated DateTime 7 161.29 cm 100 % 79 /min 22.2 kg/m2 87737.0 3 g 98.3 [degF] 116/72 mm[Hg] Tomasa Corcoran MA [facility] [place] 7 13:34:50 Date Recorded Body height Body mass index (BMI) Body mass index (BMI) [Percentile] Per age and sex Body weight Body temperature Oxygen saturation Heart rate Systolic And Diastolic Provider Name and Address Organization Details Last Updated DateTime 8 161.29 cm 20.6 kg/m2 35 % 63856 g 98.1 [degF] 98 % 84 /min 116/61 mm[Hg] Tomasa Corcoran MA [facility] 8 13:44:41 Social History Question Answer Notes LastModified by Organizat ion Details LastModified Time Tobacco Smoking Status [facility] 15:24:11 Do You Have An Advance Directive? No Information not available 07/12/2017 Animal Exposure? Yes Information not available 12/02/2014 Is Blood Transfusion Acceptable In An Emergency? Yes Information not available 12/20/2015 What Is Your Level Of Caffeine Consumption? Occasional Soda/coffee Information not available 12/02/2014 How Much Tobacco Do You Chew? None Information not available 07/12/2017 What Type Of Diet Are You Following? REGULAR Information not available 12/02/2014 Which Illicit Or Recreational Drugs Have You Used? None Information not available 07/12/2017 What Is Your Home Situation? Mother Information not available 07/12/2017 Live Alone Or With Others? With Others Mom (Tara) Information not available 07/12/2017 Do You Take Precautions To Prevent Distracted Driving? Yes [email or web address] Information not available 05/01/2017 How Often Do You Need To Have Someone Help You When You Read Instructions, Pamphlets, Or Other Written Material From Your Doctor Or Pharmacy? Sometimes Information not available 07/12/2017 Have You Served In The ? Yes [employer] [email or web address] Information not available 09/04/2018 What Was The Date Of Your Most Recent Tobacco Screening? 09/04/2018 Information not available 04/16/2019 How Many Children Do You Have? 0 [email or web address] Information not available 05/01/2017 Performs Monthly Self-breast Exam? Yes [email or web address] Information not available 05/01/2017 What Is The Name Of Your School? [employer] Information not available 07/12/2017 Do You Use [...] LastModified by Organizat ion Details LastModified Time What is your level of alcohol consumption? Occasional rare Information not available 07/12/2017 Are you currently employed? Yes [email or web address] Information not available 05/01/2017 Are you able to care for yourself independently? Yes Information not available 12/20/2015 What is your occupation? [employer] Information not available 05/23/2018 What is your exercise level? Occasional 1-2 [...] N Breast Cancer N mrsa exposure N Depression N COPD N Lung Disease N Hypothyroidism N Developmental or Behavioral Disorders N Defects or Inherited Disease N Breast Problem N Anesthesia Complications N Headaches/Migraines N Varicose Veins N Anxiety Disorder N Muscle, Joint, or Bone Problems N Obesity N Vision or Eye Problems N Arthritis N Head Injury/Concussion N Polyps N Infertility N Mental Disorder N Congenital Anomalies N Acid Reflux (GERD) N Cancer N Stroke N ADHD N Endometriosis N High Cholesterol N Liver Disease N Headaches N Fibromyalgia N Kidney Disease N Heart Problems N [...] Time HPV, quadrivalent 5 completed Not Available [facility] 10/10/2019 02:21:33 meningococcal MCV4P 6 completed Not Available [facility] 10/10/2019 02:21:51 HPV9 6 completed Not Available [facility] 10/10/2019 02:21:59 Tdap 7 completed Not Available [facility] 10/10/2019 02:21:46 Influenza, split virus, quadrivalent, PF 7 completed Not Available [facility] 10/10/2019 02:22:11 Influenza, split virus, quadrivalent, PF 4 completed Not Available [facility] 10/10/2019 02:21:56 Influenza, split virus, quadrivalent, PF 8 completed Not Available [facility] 10/10/2019 02:22:16 Hep B, adolescent or pediatric 8 completed Not Available [facility] 04/06/2014 13:59:23 Hep B, adolescent or pediatric 8 completed Not Available [facility] 04/06/2014 13:59:23 DTaP 8 completed Not Available [facility] 04/06/2014 13:59:23 IPV 8 completed Not Available [facility] 04/06/2014 13:59:24 Hib (HbOC) 8 completed Not Available [facility] 04/06/2014 13:59:24 Hib (HbOC) 8 completed Not Available [facility] 04/06/2014 13:59:24 IPV 8 completed Not Available [facility] 04/06/2014 13:59:24 DTaP 8 completed Not Available [facility] 04/06/2014 13:59:24 Hep B, adolescent or pediatric 8 completed Not Available [facility] 04/06/2014 13:59:24 DTaP 9 completed Not Available [facility] 04/06/2014 13:59:24 IPV 9 completed Not Available [facility] 04/06/2014 13:59:24 Hib (HbOC) 9 completed Not Available [facility] 04/06/2014 13:59:24 varicella 9 completed Not Available [facility] 04/06/2014 13:59:24 MMR 9 completed Not Available [facility] 04/06/2014 13:59:24 IPV 9 completed Not Available [facility] 04/06/2014 13:59:24 Hib (HbOC) 9 completed Not Available [facility] 04/06/2014 13:59:24 DTaP 0 completed Not Available [facility] 04/06/2014 13:59:24 DTaP 2 completed Not Available [facility] 04/06/2014 13:59:24 IPV 2 completed Not Available [facility] 04/06/2014 13:59:24 MMR 2 completed Not Available [facility] 04/06/2014 13:59:24 Tdap 7 completed Not Available [facility] 04/06/2014 13:59:24 Influenza, split virus, trivalent, preservative 0 completed Not Available [facility] 04/06/2014 13:59:24 Meningococcal MCV4O 0 completed Not Available [facility] 04/06/2014 13:59:24 Influenza, split virus, trivalent, preservative 1 completed Not Available [facility] 04/06/2014 13:59:24 varicella 1 completed Not Available [facility] 04/06/2014 13:59:24 Influenza, split virus, trivalent, preservative 2 completed Not Available [facility] 04/06/2014 13:59:24 HPV, quadrivalent 5 completed Not Available [facility] 10/10/2019 02:21:33 Past Encounters Encounter ID Performer Location Encounter Start Date Encounter Closed Date Diagnosis/Indication Diagnosis SNOMED-CT Code Diagnosis ICD10 Code Diagnosis IMO Codes Diagnosis Note [id number] [facility]Comm erce [address] [facility] [place] [address] 05/22/2006 00:00:00 [id number] autoEComm erce [address] [facility] [place] [address] 03/20/2004 00:00:00 [id number] autoEComm erce [address] [facility] [place] [address] 04/04/2003 00:00:00 [id number] auto[facility]Comm erce [address] [place] [address] 03/19/2002 00:00:00 [id number] autoEComm erce [address] [facility] [place] [address] 01/16/2007 00:00:00 [id number] auto[facility]Comm erce [address] [facility] [place] [address] 09/01/2007 00:00:00 [id number] auto[facility]Comm erce [address] [facility] [place] [address] 11/20/2007 00:00:00 [id number] autoEComm erce [address] [facility] [place] [address] 04/14/2008 00:00:00 [id number] autoEComm erce [address] [facility] [place] [address] 12/28/2008 00:00:00 [id number] autoEComm erce [address] [facility] [place] [address] 01/27/2009 00:00:00 [id number] autoEComm erce [address] [facility] [place] [address] 07/19/2009 00:00:00 [id number] autoEComm erce [address] [facility] [place] [address] 08/11/2009 00:00:00 [id number] autoEComm erce [address] [facility] [place] [address] 12/14/2009 00:00:00 [id number] autoEComm erce [address] [facility] [place] [address] 06/08/2010 00:00:00 [id number] autoEComm erce [address] [facility] [place] [address] 07/18/2010 00:00:00 [id number] autoEComm erce [address] [facility] [place] [address] 03/23/2011 00:00:00 [id number] autoEComm erce [address] [facility] [facility] [address] [place], [place] [address] 04/05/2011 00:00:00 [id number] autoEComm erce [address] [facility] [place] [address] 06/14/2011 00:00:00 [id number] autoEComm erce [address] [facility] [place] [address] 11/14/2011 00:00:00 [id number] autoEComm erce [address] [facility] [place] [address] 06/19/2012 00:00:00 [id number] autoEComm erce [address] [facility] [place] [address] 07/15/2012 00:00:00 [id number] autoEComm erce [address] [facility] [place] [address] 01/09/2013 00:00:00 [id number] autoEComm erce [address] [facility] [place] [address] 07/14/2013 00:00:00 [id number] autoEComm erce [address] [facility] [place] [address] 08/13/2013 00:00:00 [id number] autoEComm erce [address] [facility] [place] [address] 09/08/2013 00:00:00 [id number] Meaghan Mejia [facility] Main Office [address] [place] [address] 06/16/2014 11:17:51 06/16/2014 11:55:57 Needs influenza immunization 481627922 Strain of hamstring muscle 9255977615 04 [id number] Osmin Dillon [facility] Main Office [address] [place] [address] 08/31/2014 15:16:48 08/31/2014 15:51:18 Pain in thumb 854087974 mom will call neos once x-ray done [id number] Walter Hammer MD Main Office [address] [address] [place] [address] 10/20/2014 15:17:05 10/20/2014 15:40:09 Administration of viral vaccine 34399814 [id number] Doris [facility] Main Office [address] [address] [place] [address] 12/02/2014 14:11:26 12/02/2014 15:07:08 Well child 865699997 Instructio n on proper breast self exams. Growing and developing well. Age appropriat e anticipato ry guidance provided. Regular dental care and appropriat e car safety advised. Immunizati on status updated. Administra tion of viral vaccine 06578489 [id number] KAREEM Saavedra Main Office [address] [address] [place] [address] 03/31/2015 10:14:13 03/31/2015 10:36:57 Pain in right lower limb 927784792 will check xray but suspect probable contusion, recommend rest/ice/N SAIDs [id number] KAREEM Ken Main Office [address] [address] [place] [address] 12/20/2015 14:17:28 12/20/2015 15:14:02 Well child 087852082 Z00.129 Growing and developing well. Age appropriat e anticipato ry guidance provided. Regular dental care and appropriat e car safety advised. Immunizati on status updated. Gardasil #3 given today as well as meningitis booster. [id number] Taylor Cardenas PA-C Main Office [address] [address] [place] [address] 08/14/2016 08:31:21 08/14/2016 09:21:39 Candidal intertrigo 866072584 B37.2 [id number] KAREEM Ken Main Office [address] [address] [place] [address] 10/04/2016 08:43:17 10/04/2016 09:17:04 Pseudofolliculitis tracey 410364828 L73.1 Discussed razor burn with patient. She should refrain from shaving for now, use mupirocin as directed, may use a scrub to area daily for now then once weekly. May need to use a different form of hair removal. [id number] Abbey maddox MD Main Office [address] [address] 05/01/2017 08:49:10 05/01/2017 09:36:31 Adult health examination 249448431 Z00.00 pt to start exercise, used to play soccer, considerin g [employer] or [employer] Administra tion of viral vaccine 14921659 Z23 Exposure t o sexually transmissible disorder 630308524 Z20.2 on depo, due for another shot, not recently sexually active, no symptoms, in past used condoms, check below for routing screening, no concerns and no need for pelvic [id number] Roberto Price MD Main Office [address] [address] 05/07/2017 13:36:59 05/07/2017 14:05:17 Contraception care management 115056660 Z30.42 [id number] KAREEM Ken Main Office [address] [address] 07/12/2017 10:31:06 07/12/2017 11:30:35 Needs influenza immunization 688447509 Z23 Menorrhagia 398689023 N9 2.0 Sx were present while [place] was in [place] and notes she was in a higher stress situation. Sx have resolved since she came home on Saturday. May be stress related. If sx recur please call/ return Contracept ion care management 664497596 Z30.9 continue depo as scheduled, bro in July [id number] Taylor Cardenas PA-C Main Office [address] [place] [address] 07/30/2017 13:24:19 07/30/2017 14:19:33 Lumbar sprain 273623083 S33.9XXA Heat , NSAIDs , muscle relaxants, back stretches BID as discussed. If persists after 3 weeks, PT referral. Low back pain 409813040 M54.5 [id number] Abbey maddox MD Main Office [address] [facility] [address] [place] [address] 12/18/2017 12:38:37 12/18/2017 13:23:26 Low back pain 178329473 M54.5 improving, work on core, go to gym, proper lifting [id number] Roberto Price MD Main Office [address] [facility] [address] [place] [address] 01/20/2018 13:26:00 01/20/2018 14:14:40 Essential tremor 681071647 G25.0 This appears to be benign Low back pain 567399170 M54.5 Exposure t o sexually transmissible disorder 367882325 Z11.3 [id number] Doris Layton [facility] Main Office [address] [place] [address] [place] [address] 05/23/2018 14:32:41 05/23/2018 15:05:51 Adult health examination 998655537 Z00.00 Exposure t o sexually transmissible disorder 705606270 Z20.2 [id number] Doris Layton [facility] Main Office [address] [place] [address] [place] [address] 09/04/2018 13:37:50 09/04/2018 14:07:47 Needs influenza immunization 074982754 Z23 Abnormal weight loss 267 508841 R63.4 Patient has lost 6 lbs since april, denies any increased exercise or change in her diet. will check labs. External hemorrhoids 239 93098 K64.4 + external hemorrhoid x 2 noted, tender but not indurated, will tx with cream TID, suggest high fiber foods, lots of water, more fruits and veggies, whole grains and stool softener as needed. Health Concerns Section Related Observation LastModified by Organization Detai ls LastModified Time None Recorded Concern Status LastModified by Organization Details LastModified Time None Recorded Advance Directives Directive N: Payers Insurance Date Sequence Insurance Name Policy Number Policy Sahu Covered Member ID Sahu Member ID Guarantor Name 05/01/2017 1 JENNIFER[employer]: HMO BLUE [id number] Ashley Acevedo [id number] Ashleyra Acevedo 09/04/2018 1 [place] [id number] Ashleyed Acevedo [id number] Ashleyed Acevedo 10/20/2018 1 [place] [id number] Ashley Acevedo [id number] Ashley Acevedo 10/20/2018 2 [place] Ashley Acevedo [id number] Ashley Acevedo 08/31/2014 1 [facility] - [facility] (MEDICAID REPLACEMENT - HMO) [id number] Ashley Acevedo [id number] Ashleyed Acevedo 07/11/2017 1 [place] [id number] Ashley Acevedo [id number] Ashley Acevedo Notes Date Note Type Note Provider Name and Address Organization Details Recorded Time 07/30/2017 text/html ROS as noted in the HPI 17 year old female c/o 3 week onset of low back pain not helped with occasional OTC NSAIDs. Worse with prolonged sitting and walking. NOt at night. NO h/o acute injury. , but reports lifting heavy boxes and crates at [employer]. NO radiation to legs, weakness or numbness. Tried PRN MOtrin and BenGay. Roberto Price MD [address] [address], [place], [id number], [facility] 07/30/2017 15:08:38 12/18/2017 text/html Pt is here for a followup of low back pain. Pt has started oging to the gym, it is better Works at [email or web address], she tried to lift with proper form Abbey de anda, [facility] [place] 12/18/2017 16:48:30 01/20/2018 text/html Back PainReporte d by PatientHPIFor aggravating factors, patient reportsmovement/positi oning. For location, patient reportspain is not radiating. For severity, patient reportssame. For associated symptoms, patient reportsno fever,no weak limbs,no numbness of the legs/feet,no tingling, andno incontinence.Has been an intermittent problem and is generally not helped by NSAIDsROS as noted in the HPI Has been having a slight tremor in [...] for STD. Does not always use protection. Roberto Price MD [address] [address], [place], [id number], [facility] 01/20/2018 15:10:50 05/23/2018 text/html Generic HPI TemplateReported by PatientPresents for PE. no concerns. starting at [employer] for [employer], will be playing soccer. Abbey de anda, [facility] 05/23/2018 15:23:45 09/04/2018 text/html Generic HPI TemplateReported by PatientHas noticed a lump on her bottom for [...] havign diarrhea or constipation, notes regular stool. KAREEM Ken [address] [facility] [address], [place], [phone], [facility] 09/04/2018 14:12:22 OBGyn Episode No OBEpisode recorded.
== END 2025-09-22 14:14 | disposition home or self-care (01) ==
LOC: HO.HMCFM 13:25
PROVIDERS: PCP Nurse Practitioner Family; Visit Provider Nurse Practitioner Family
DX: K64.4 Residual hemorrhoidal skin tags (principal); O90.5 Postpartum thyroiditis; O99.345 Other mental disorders complicating the puerperium; F41.8 Other specified anxiety disorders; Z30.011 Encounter for initial prescription of contraceptive pills

== ENCOUNTER → 2025-09-22 13:25 | Outpatient (BNVA) | payer OTHER, SELFPAY | PROVIDERS: PCP Nurse Practitioner Family; Visit Provider Nurse Practitioner Family | DX: K64.4 Residual hemorrhoidal skin tags (principal); O90.5 Postpartum thyroiditis; O99.345 Other mental disorders complicating the puerperium; F41.8 Other specified anxiety disorders; N93.8 Other specified abnormal uterine and vaginal bleeding; T38.5X5A Adverse effect of other estrogens and progestogens, initial encounter; Z30.011 Encounter for initial prescription of contraceptive pills; F17.290 Nicotine dependence, other tobacco product, uncomplicated | CPT/HCPCS: 99212 ==